=== PATIENT | female | born 1975 | race Two or more races ===

== ENCOUNTER 2020-02-14 10:51 | Outpatient (REF) | payer MEDICAID, SELFPAY ==
--- NOTE | 2020-02-14 10:54 | XR_ITS ---
EXAMINATION: BILATERAL KNEE X-RAY CLINICAL INFORMATION: Right knee pain COMPARISON: Previous knee x-ray October 2011 TECHNIQUE: Standing AP view of both knees and sunrise and lateral views of the right knee FINDINGS: Right knee: Bone alignment is normal. No fracture or dislocation is seen. There are small osteophytes at the patellofemoral and lateral femoral tibial joints. There is no joint effusion. Standing AP view of the left knee is unremarkable. XR/XR knee standing BI IMPRESSION: Right knee: Small osteophytes at the lateral femoral tibial and patellofemoral joints. Unremarkable AP view of the left knee.
--- NOTE | 2020-02-14 10:54 | XR_ITS ---
EXAMINATION: BILATERAL KNEE X-RAY CLINICAL INFORMATION: Right knee pain COMPARISON: Previous knee x-ray October 2011 TECHNIQUE: Standing AP view of both knees and sunrise and lateral views of the right knee FINDINGS: Right knee: Bone alignment is normal. No fracture or dislocation is seen. There are small osteophytes at the patellofemoral and lateral femoral tibial joints. There is no joint effusion. Standing AP view of the left knee is unremarkable. XR/XR knee RT 2V IMPRESSION: Right knee: Small osteophytes at the lateral femoral tibial and patellofemoral joints. Unremarkable AP view of the left knee.
== END 2020-02-14 10:52 | disposition home or self-care (01) ==
LOC: HO.HOSX 10:51
PROVIDERS: PCP Internal Medicine; Referring Provider Internal Medicine; Visit Provider Orthopaedic Surgery
DX: M25.561 Pain in right knee (principal); M25.562 Pain in left knee; G89.29 Other chronic pain
CPT/HCPCS: 73560; 73565; 99202

== ENCOUNTER 2020-04-18 13:48 | Emergency (ER) | payer MEDICAID, SELFPAY ==
--- NOTE | 2020-04-18 | ECG_ITS ---
Test Reason : CP Blood Pressure : / mmHG Vent. Rate : 064 BPM Atrial Rate : 064 BPM P-R Int : 160 ms QRS Dur : 080 ms QT Int : 400 ms P-R-T Axes : 048 062 037 degrees QTc Int : 412 ms Normal sinus rhythm Normal ECG When compared to the previous EKG of No significant changes seen Referred By: Generic ED Physician Electronically Signed By:RANJEET NGUYEN MD
--- NOTE | ~2020-04-18 | XR_ITS ---
EXAMINATION: XR CHEST CLINICAL INFORMATION: Chest pain. COMPARISON: Chest 08/20/2019 TECHNIQUE: Frontal view of the chest was obtained. FINDINGS: The lungs are well-expanded and clear. The heart size and pulmonary vascularity is normal. There is moderate spondylosis of dorsal spine. No lytic process. XR/XR chest 1V IMPRESSION: Unremarkable chest exam.
[2020-04-18 13:57] VITALS: BP 134/64; PULSE 67; RESP 18; TEMP 36.8; O2SAT 99; BMI 38.3
[2020-04-18 15:58] VITALS: BP 112/64; PULSE 62; RESP 16; TEMP 37; O2SAT 100
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
[2020-04-18 16:20] LABS: MANUAL DIFF FLAG NO
[2020-04-18 16:21] LABS: Basophils Percent Auto 0.1 % (0-2); Eosinophils Absolute Auto 0.1 X10*3/uL (0.0-0.4); Eosinophils Percent Auto 1.6 % (0-4); Hematocrit 36.2 % (37-47); Hemoglobin 11.8 g/dl (12.0-16.0); Imm Gran Abs Auto 0.01 X10*3/uL (0.00-0.03); Imm Gran Pct Auto 0.1 % (0.0-0.4); Lymphocytes Absolute Auto 1.3 X10*3/uL (1.2-4.9); Lymphocytes Percent Auto 19.1 % (20-40); Mean Corpuscular HGB Conc 32.6 g/dl (31.0-35.0); Mean Corpuscular Hemoglobin 28.3 pg (27.0-33.0); Mean Corpuscular Volume 86.8 fL (80-98); Mean Platelet Volume 11.4 fL (9.4-12.3); Monocytes Absolute Auto 0.4 X10*3/uL (0.1-1.2); Monocytes Percent Auto 6.2 % (2-11); Neutrophils Absolute Auto 4.9 X10*3/uL (2.0-8.3); Neutrophils Percent Auto 72.9 % (45-73); Platelet Count 198 X10*3/uL (160-400); Red Blood Count 4.17 X10*6/uL (4.20-5.50); Red Cell Distribution Width 14.2 % (11.0-16.0); White Blood Count 6.8 X10*3/uL (4.8-10.8)
[2020-04-18 16:53] LABS: Anion Gap 10 (12-20); Blood Urea Nitrogen 15 mg/dL (9-16); Calcium 8.9 mg/dL (8.4-10.2); Carbon Dioxide 28 mmol/L (22-29); Chloride 106 mmol/L (96-108); Estimated Glomerular Filt Rate > 60; Glucose Random 89 mg/dL (60-115); Potassium 4.2 mmol/L (3.3-5.1); Sodium 140 mmol/L (135-145)
[2020-04-18 16:57] LABS: Troponin-I High Sensitivity < 3.5 ng/L (<3.5-17.0)
[2020-04-18 17:41] VITALS: BP 128/72; PULSE 67; RESP 14; TEMP 37.1; O2SAT 98
--- NOTE | 2020-04-18 18:58 | PC.NURSE ---
This RN at bedside with the interpreter and translator to provide pt with DC instructions. Pt stating that she has no ride home , has no money for a taxi/uber and planned to be admitted. This RN explaining to pt that she is able to use the phone in the waiting room to call family/friends for a ride. This RN offering to call pt a taxi however she continuously stating I have no money to pay for transportation home. Pt damaging this RN find her a ride to the bus stop. Pt ambulating to the waiting room to find transportation home, provided with DC paperwork, IV removed, refusing DC VS.
[2020-04-18 19:02] VITALS: RESP 20
== END 2020-04-18 19:02 | disposition home or self-care (01) ==
PROVIDERS: Emergency Provider Emergency Medicine; PCP Internal Medicine
DX: R51.9 Headache, unspecified (principal)
CPT/HCPCS: 36415; 71045; 80048; 82375; 84484; 85025; 93005; 99283

== ENCOUNTER → 2020-05-30 20:00 | Outpatient (REF) | payer MEDICAID, SELFPAY | LOC: HO.SL 20:00 | PROVIDERS: PCP Internal Medicine; Visit Provider Internal Medicine | DX: R06.81 Apnea, not elsewhere classified (principal) | CPT/HCPCS: 95811 ==

== ENCOUNTER 2020-06-01 11:00 | Outpatient (RCR) | payer MEDICAID, SELFPAY ==
--- NOTE | 2020-05-03 12:21 | MHC.PT.EP ---
[facility] [place] Office [place] Office [place] Office [address] Vanita Spencer [address] [phone] F: [phone] F: [phone] F: [phone] F: [phone] Physical Therapy Plan of Care Date of Evaluation: 05/03/20 Date of Surgery: Diagnosis: Bilateral knee pain Assessment: Pt is a 44 y/o female referred to skilled PT for bilateral knee pain. Assessment reveals impaired right patella mobility, decreased active and passive knee ROM, impaired hip ROM (IR/ER/FLEX/EXT), decreased strength of hips and knees, altered posture, muscle length restrictions, and gait deviations. Related functional limitations include: ascending/descending stairs, squatting, walking for an extended period of time or walking fast, getting in/out of the bus, bathing, sitting for an extended period of time and then trying to transition to stand, standing for greater than a short amount of time, and carrying groceries. The Pt will benefit from skilled PT services 2x/week for 4 weeks in order to reduce impairments, improve limitations, and implement an HEP. Frequency and Duration: The patient will be seen 2x/week for 4 weeks Short Term Goals: -In 2 weeks, Pt to report less than 10/10 knee pain while walking. -In 2 weeks, Pt to improve knee ROM by at least 8 degrees B. Mcc Goals: -In 4 weeks, Pt to demonstrate I w/ HEP. -In 4 weeks, Pt to report at least a 50% improvement in symptoms since onset of PT. Treatment Plan: Modalities to reduce pain, spasms and effusion. Manual therapy to restore motion and function. Therapeutic exercise to improve strength and flexibility. Neuromuscular re-education for posture and balance. Therapeutic activities to return to functional activities of daily living. Electronically signed by: Lynda Cavanaugh PT, DPT Please sign and return to therapist. Thank you for your referral.
--- NOTE | 2020-06-05 10:02 | MHC.PT.DC ---
[facility] [place] Office [place] Office [place] Office [address] Vanita Spencer [address] [phone] F: [phone] F: [phone] F: [phone] F: [phone] Physical Therapy Discharge Report Diagnosis: Bilateral knee pain Date of Surgery: Date of Evaluation: 05/03/20 Date of Discharge: 06/05/20 Treatments to Date: 9 Cancellations to Date: 0 No Shows to Date: 0 Discharge Status: Discharge Summary: Pt has completed a visits of skilled PT for bilateral leg pain. She has consistently reported the same amount of pain and no improved through physical therapy intervention. She will be d/c'd to HEP @ this time w/ recommendation of MD follow-up. She has a rheumatology appointment coming up soon. Electronically signed by: Lynda Cavanaugh PT, DPT Please sign and return to therapist. Thank you for your referral.
== END 2020-06-05 10:01 | disposition other institution (70) ==
LOC: HO.PT 11:00
PROVIDERS: PCP Internal Medicine; Visit Provider Orthopaedic Surgery
DX: M25.561 Pain in right knee (principal); M25.562 Pain in left knee
CPT/HCPCS: 97035; 97110; 97161

== ENCOUNTER → 2020-06-04 09:17 | Outpatient (REF) | payer MEDICAID, SELFPAY ==
--- NOTE | ~2020-06-04 | NM_ITS ---
Exercise Myocardial perfusion study Indication: Chest pain to evaluate for myocardial ischemia Technique: The patient was brought in for an exercise perfusion study on 06/04/2020. Patient performed exercise as per Davey protocol and was injected 30 mCi of sestamibi was given intravenously one target HR was achieved. Images were obtained using the SPECT gamma camera interlaced with the gating device. Images were obtained in supine position. Resting perfusion study was performed on 06/05/2020. Patient was administered 30 mCi of sestamibi intravenously at rest. Images were then obtained in supine position. Images obtained with and without CT attenuation. Total DLP 78 mGy-cm. Images were processed with the software and compared side to side in short axis, horizontal long axis and vertical long axis views. Findings: The stress perfusion study showed non attenuated images show minimally reduced basal anterior wall of the LV myocardium. Remainder of the LV myocardium is normally perfused. Attenuation corrected images show mildly reduced uptake distal septum and apex of the LV myocardium.. The gated study shows normal LV systolic function with calculated LVEF of greater than 70 %. LV cavity is normal in size. The gated study shows normal systolic wall thickening and contraction of all segments. There is no transient ischemic dilation. Resting study shows attenuation corrected images show no change in perfusion pattern compared to stress non attenuated images show normal uptake of radiotracer in all segments. Gating at rest reveals normal systolic wall motion with ejection fraction at 72%. The findings are consistent with no clear reversible defect seen on attenuation corrected images.. NM/NM belkis perf SPECT rest & str Impression: 1. Likely normal myocardial perfusion 2. Gated LVEF is greater than 70% 3. Transient ischemic dilatation not present Stress EKG is negative for ischemia
--- NOTE | 2020-06-04 09:15 | CA_ITS ---
Exercise stress nuclear using Davey protocol. Total of 5mi 1sec. METs 6.80, TAPHR up to 89%. Patient tolerated well, denies any anginal symptoms. EKG with no arrhythmias. No ischemic changes seen during exercise or in recovery. Nuclear images to follow. Normotensive response to exercise. Test reviewed with Dr. Sebastian. DORIAN
== END ==
LOC: HO.CARD 09:17
PROVIDERS: Visit Provider Internal Medicine Cardiovascular Disease
DX: R07.9 Chest pain, unspecified (principal)
CPT/HCPCS: 78452; 93016; 93017; 93018; A9500

== ENCOUNTER 2020-06-27 09:41 | Outpatient (REF) | payer MEDICAID, SELFPAY ==
--- NOTE | ~2020-06-27 | XR_ITS ---
EXAMINATION: XR BOTH KNEES AP STANDING XR RIGHT KNEE, 2 VIEWS CLINICAL INFORMATION: Pain in right knee COMPARISON: 02/14/2020 TECHNIQUE: Standing AP view of both knees and lateral and sunrise views of the right knee. FINDINGS: LEFT KNEE: The bones, joints, and soft tissues are normal on the single AP view. RIGHT KNEE: Minimal osteoarthritis in the right knee is characterized by small marginal osteophytes in the lateral and patellofemoral compartments. This appearance is similar to prior. Joint spaces appear relatively well preserved. No fracture or malalignment. Bone mineralization is normal. No joint effusion. A small enthesopathic spur is present at the quadriceps tendon insertion on the patella. Soft tissues are otherwise unremarkable. XR/XR knee standing BI IMPRESSION: Minimal osteoarthritis in the patellofemoral and lateral compartments in the right knee, unchanged. No new findings.
--- NOTE | ~2020-06-27 | XR_ITS ---
EXAMINATION: XR BOTH KNEES AP STANDING XR RIGHT KNEE, 2 VIEWS CLINICAL INFORMATION: Pain in right knee COMPARISON: 02/14/2020 TECHNIQUE: Standing AP view of both knees and lateral and sunrise views of the right knee. FINDINGS: LEFT KNEE: The bones, joints, and soft tissues are normal on the single AP view. RIGHT KNEE: Minimal osteoarthritis in the right knee is characterized by small marginal osteophytes in the lateral and patellofemoral compartments. This appearance is similar to prior. Joint spaces appear relatively well preserved. No fracture or malalignment. Bone mineralization is normal. No joint effusion. A small enthesopathic spur is present at the quadriceps tendon insertion on the patella. Soft tissues are otherwise unremarkable. XR/XR knee RT 2V IMPRESSION: Minimal osteoarthritis in the patellofemoral and lateral compartments in the right knee, unchanged. No new findings.
--- NOTE | ~2020-06-27 | XR_ITS ---
EXAMINATION: XR HAND, RIGHT XR HAND, LEFT CLINICAL INFORMATION: Pain in unspecified joint. COMPARISON: None TECHNIQUE: PA, lateral, and oblique views of each hand. FINDINGS: RIGHT HAND: Mild osteoarthritis at the long and small finger DIP joints is characterized by nonuniform joint space narrowing and small marginal osteophytes. No fractures are identified. Tiny marginal osteophytes are evident at the 1st CMC joint. MCP joints appear relatively well preserved. No erosions. Bone mineralization is normal. No fracture or malalignment. Soft tissues are unremarkable without appreciable nodularity or mineralization. LEFT HAND: Mild osteoarthritis is evident at the 1st CMC joint with a small chronic ossific fragment and small marginal osteophytes. Additional mild osteoarthritis is evident at the long and small finger DIP joints with small marginal osteophytes primarily. No acute fractures. No erosions or periostitis. Bone mineralization is normal. Soft tissues are unremarkable without significant mineralization. XR/XR hand RT min 3V IMPRESSION: Mild osteoarthritis at a few joints in both hands, notably the 1st CMC joints and the DIP joints of the long and ring fingers.
--- NOTE | ~2020-06-27 | XR_ITS ---
EXAMINATION: XR HAND, RIGHT XR HAND, LEFT CLINICAL INFORMATION: Pain in unspecified joint. COMPARISON: None TECHNIQUE: PA, lateral, and oblique views of each hand. FINDINGS: RIGHT HAND: Mild osteoarthritis at the long and small finger DIP joints is characterized by nonuniform joint space narrowing and small marginal osteophytes. No fractures are identified. Tiny marginal osteophytes are evident at the 1st CMC joint. MCP joints appear relatively well preserved. No erosions. Bone mineralization is normal. No fracture or malalignment. Soft tissues are unremarkable without appreciable nodularity or mineralization. LEFT HAND: Mild osteoarthritis is evident at the 1st CMC joint with a small chronic ossific fragment and small marginal osteophytes. Additional mild osteoarthritis is evident at the long and small finger DIP joints with small marginal osteophytes primarily. No acute fractures. No erosions or periostitis. Bone mineralization is normal. Soft tissues are unremarkable without significant mineralization. XR/XR hand LT min 3V IMPRESSION: Mild osteoarthritis at a few joints in both hands, notably the 1st CMC joints and the DIP joints of the long and ring fingers.
[2020-06-27 10:48] LABS: MANUAL DIFF FLAG NO
[2020-06-27 10:52] LABS: Basophils Percent Auto 0.4 % (0-2); Eosinophils Absolute Auto 0.1 X10*3/uL (0.0-0.4); Eosinophils Percent Auto 2.4 % (0-4); Hemoglobin 12.6 g/dl (12.0-16.0); Imm Gran Abs Auto 0.02 X10*3/uL (0.00-0.03); Imm Gran Pct Auto 0.4 % (0.0-0.4); Lymphocytes Absolute Auto 1.4 X10*3/uL (1.2-4.9); Lymphocytes Percent Auto 29.4 % (20-40); Mean Corpuscular HGB Conc 33.2 g/dl (31.0-35.0); Mean Corpuscular Hemoglobin 29.2 pg (27.0-33.0); Mean Corpuscular Volume 88.2 fL (80-98); Mean Platelet Volume 11.2 fL (9.4-12.3); Monocytes Absolute Auto 0.5 X10*3/uL (0.1-1.2); Monocytes Percent Auto 9.7 % (2-11); Neutrophils Absolute Auto 2.7 X10*3/uL (2.0-8.3); Neutrophils Percent Auto 57.7 % (45-73); Platelet Count 230 X10*3/uL (160-400); Red Blood Count 4.31 X10*6/uL (4.20-5.50); White Blood Count 4.7 X10*3/uL (4.8-10.8)
[2020-06-27 11:23] LABS: Alanine Aminotransferase 12 U/L (0-31); Albumin Level 4.2 g/dL (3.5-5.0); Alkaline Phosphatase 56 U/L (39-117); Anion Gap 12 (12-20); Aspartate Amino Transferase 15 U/L (5-31); Bilirubin Total 0.5 mg/dL (0.0-1.0); Blood Urea Nitrogen 17 mg/dL (9-16); C Reactive Protein 0.44 mg/dL (< or = 0.50); Calcium 9.5 mg/dL (8.4-10.2); Carbon Dioxide 26 mmol/L (22-29); Chloride 105 mmol/L (96-108); Estimated Glomerular Filt Rate > 60; Glucose Random 81 mg/dL (60-115); Potassium 4.4 mmol/L (3.3-5.1); Rheumatoid Factor < 15.0 IU/mL (<15.0); Sodium 139 mmol/L (135-145); Total Protein 7.5 g/dL (6.5-8.0)
[2020-06-27 11:35] LABS: Erythrocyte Sedimentation Rate 28 MM/HR (0-20)
[2020-06-27 11:45] LABS: Thyroid Stimulating Hormone 0.64 uIU/mL (0.32-4.0)
[2020-06-28 14:32] LABS: Anti Nuclear Antibody Screen NEGATIVE (NEGATIVE)
[2020-06-28 15:22] LABS: Cyclic Citrullinated Peptide <16 UNITS
[2020-07-01 14:01] LABS: Vitamin D 25-OH, D2 <4 ng/mL; Vitamin D 25-OH, D3 42 ng/mL; Vitamin D 25-OH, Total 42 ng/mL (30-100)
== END 2020-06-27 09:42 | disposition home or self-care (01) ==
LOC: HO.LAB 09:41
PROVIDERS: PCP Internal Medicine; Visit Provider Student in an Organized Health Care Education/Training Program
DX: M25.561 Pain in right knee (principal); M25.562 Pain in left knee; M25.50 Pain in unspecified joint
CPT/HCPCS: 36415; 73130; 73560; 73565; 80053; 82306; 84443; 85025; 85652; 86038; 86039; 86140; 86200; 86431; 99202

== ENCOUNTER → 2020-07-26 12:32 | Outpatient (BNVA) | payer MEDICAID, SELFPAY | PROVIDERS: Visit Provider Student in an Organized Health Care Education/Training Program | DX: M25.50 Pain in unspecified joint (principal); M79.7 Fibromyalgia; Z79.899 Other long term (current) drug therapy | CPT/HCPCS: 99212 ==

== ENCOUNTER → 2020-07-31 11:11 | Outpatient (BNVA) | payer MEDICAID, SELFPAY | PROVIDERS: PCP Internal Medicine; Referring Provider Internal Medicine; Visit Provider Psychiatry & Neurology Neurology | DX: G47.33 Obstructive sleep apnea (adult) (pediatric) (principal) | CPT/HCPCS: 99202 ==

== ENCOUNTER → 2020-11-06 11:01 | Outpatient (BNVA) | payer MEDICAID, SELFPAY | PROVIDERS: PCP Internal Medicine; Referring Provider Internal Medicine; Visit Provider Psychiatry & Neurology Neurology | DX: Z13.89 Encounter for screening for other disorder (principal) | CPT/HCPCS: 99212 ==

== ENCOUNTER 2020-12-05 15:19 | Emergency (ER) | payer MEDICAID, SELFPAY ==
--- NOTE | ~2020-12-05 | US_ITS ---
EXAMINATION: US VENOUS ULTRASOUND WITH DOPPLER LOWER EXTREMITY, BILATERAL CLINICAL INFORMATION: Bilateral lower extremity edema COMPARISON: Bilateral DVT study 08/20/2019 TECHNIQUE: Ultrasound of the deep veins is performed from the hip to the calf with compression sonography and color and pulse Doppler assessment. Spectral analysis with color-flow imaging is performed. FINDINGS: RIGHT: There is normal venous compression and respiratory variation and augmented flow. The visualized common femoral vein, superficial femoral vein, profunda femoral vein, popliteal vein, and the trifurcation region shows no evidence of deep venous thrombosis. There is no significant popliteal fossa cyst. LEFT: There is normal venous compression and respiratory variation and augmented flow. The visualized common femoral vein, superficial femoral vein, profunda femoral vein, popliteal vein, and the trifurcation region shows no evidence of deep venous thrombosis. There is no significant popliteal fossa cyst. Prominent lymph nodes present in the left groin which have been seen previously. If the patient's symptoms persist, followup ultrasound in 5 days 7 days might be of value to exclude proximal propagation from a non-visualized calf vein. US/US venous duplex LE BI IMPRESSION: No DVT demonstrated in either lower extremity.
[2020-12-05 15:31] VITALS: BP 114/85; PULSE 97; RESP 18; TEMP 36.8; O2SAT 98; BMI 36.3
--- NOTE | 2020-12-05 17:43 | ED_ITS ---
HPI - General Adult General Chief complaint: General Medical Stated complaint: leg swelling Time Seen by Provider: 12/05/20 17:40 Source: patient Limitations: no limitations History of Present Illness HPI narrative: This is a 45-year-old female with a history of bilateral venous insufficiency, who was had swelling off and on her legs for 3-4 years. The patient notes in the last 10 days she has had worse swelling and is also noted some redness to her legs. The patient was seen at [facility] today and was referred to the emergency department for IV antibiotics, per the patient. Patient denies any shortness of breath. She does have chest pain sometimes, denies any chest pain now. She denies being on any diuretic or water pill. She is not on any antibiotics. She denies having any prior history of blood clot. She states she has been admitted to the hospital for this problem in the past. She denies any fever. She does also note she has a history of fibromyalgia and obstructive sleep apnea Related Data Home Medications Medication Instructions Recorded Confirmed finasteride 5 mg tablet 5 mg PO DAILY 01/24/20 06/27/20 lisinopril 10 mg tablet 10 mg PO DAILY 06/27/20 06/27/20 naproxen 500 mg tablet 500 mg PO BID 07/26/20 aripiprazole 5 mg tablet (Abilify) 5 mg PO BEDTIME 11/06/20 furosemide 20 mg tablet 20 mg PO DAILY 11/06/20 Previous Rx's Medication Instructions Recorded cephalexin 750 mg capsule 750 mg PO TID #30 cap 12/05/20 hydrochlorothiazide 25 mg tablet 25 mg PO Q OTHER DAY #40 tab 12/05/20 Allergies Allergy/AdvReac Type Severity Reaction Status Date / Time No Known Allergies Allergy Verified 11/06/20 11:14 [No Known Allergies*] Review of Systems Review of Systems: Yes all other systems are reviewed and are negative Constitutional: Constitutional: Denies fever(s) Eyes: Eyes: Reports as per HPI and Reports no additional eye complaints ENT: Reports system reviewed and no additional complaints, except as documented, Reports as per HPI, Denies nasal congestion, Denies nasal discharge and Denies sore throat Cardiovascular: Cardiovascular: Reports as per HPI, Denies chest pain, Denies dyspnea and Reports other (Swelling to both legs) Respiratory: Respiratory: Reports as per HPI, Denies cough and Denies dyspnea Gastrointestinal: Gastrointestinal: Reports as per HPI, Denies abdominal pain, Denies diarrhea and Denies vomiting Genitourinary: Genitourinary: Reports as per HPI, Denies hematuria, Denies u rinary frequency and Denies dysuria Musculoskeletal: Musculoskeletal: Denies numbness Comments: Pain to both legs Integumentary/Breasts: Skin/Breast: Reports rash (Redness to both legs from about assisted down the calf to the feet) and Reports other (Redness to lower legs) Neurologic: Denies numbness and Denies Sensory deficit (Neuro) Psychiatric: Psychiatric: Reports no additional psychiatric complaints and Reports as per HPI Endocrine: Endocrine: Reports no additional endocrine complaints and Reports as per HPI Hematologic/Lymphatic: Hematologic/Lymphatic: Reports no additional hematologic/lymphatic complaints, Reports as per HPI and Reports other (No peripheral edema) [facility] Past Medical History Medical History Alopecia Arthritis of knee, right Mood disorder Prediabetes Venous insufficiency Vitamin D deficiency Surgical History Previous section Family History Family History Mother HTN (hypertension) Diabetes Social History Social History (Updated 11/06/20 @ 11:16 by JEN Cooper) Household Members: None Housing: House Alcohol intake: never Patient Tobacco Use Status: Never used Tobacco Advance Directives: No Advance Directives Information Provided: No Patient : No Current occupational status: unemployed Current occupation: Right Handed Physical Exam Vital Signs: Vital Signs: Last Vital Signs Temp 97.4 F 12/05/20 20:12 Pulse 67 12/05/20 20:12 Resp 16 12/05/20 20:12 BP 107/53 L 12/05/20 20:12 Pulse Ox 95 12/05/20 20:12 Body Mass Index 36.3 Const: General: cooperative, no acute distress and alert Orientation/consciousness: patient oriented x3 HENMT: Head: Yes normal to inspection Eyes: General: appearance normal, both eyes and all related structures Eyelids: Yes eyelids normal Conjunctivae: conjunctivae normal Pupils: Equal, round and reactive pupils present Neck: Neck: Yes normal visual inspection and Yes supple Chest: Chest palpation & inspection: normal inspection of the chest Resp: Effort & Inspection: normal respiratory effort Auscultation: clear to auscultation bilaterally Cardio: Rate: regular rate Rhythm: regular rhythm Heart sounds: S1 normal heart sound present, S2 normal heart sound present, no gallops, no murmurs and no rubs GI: Palpation (GI): Soft to palpation, nontender and Other GI palpation findings present (Non-distended) Auscultation: normal bowel sounds Skin: General skin exam: erythema (To both lower legs, worse on the left, mildly warm to touch, no weeping or ) Neuro: General: patient oriented x3, no focal motor deficits and CN's II-XI intact bilaterally Cranial nerves: Yes Equal, round and reactive pupils present Cognition (Neuro): normal cognition Motor exam (neuro): 5/5 motor strength present throughout Sensory Exam: No Sensory deficit (Neuro) Extrem: General: Yes normal to inspection and No no pedal edema (Swelling to both legs consistent with chronic lymphedema) Psych: Appearance: grossly normal Affect: normal affect Medical Decision Making MDM Narrative Medical decision making narrative: Patient with chronic lymphedema, has had worsened swelling recently. Patient apparently formally was on furosemide. Patient does have chronic venous stasis changes, which is likely progressed into cellulitis especially on the left leg. Patient is not ill appearing. No fever. White blood cell count normal. Renal function normal. Recommend starting hydrochlorothiazide, making sure to elevate the legs, using compression stockings, and taking Keflex as prescribed for 10 days. Patient was given 1.5 g of Ancef here in the ED. Lab Data Lab results reviewed: Yes I reviewed the patient's lab results. Result diagrams: 12/05/20 18:41 12/05/20 18:41 Labs: Lab Results 12/05/20 12/05/20 Range/Units 18:41 18:41 WBC 6.4 (4.8-10.8) X10*3/uL RBC 3.53 L (4.20-5.50) X10*6/uL Hgb 10.2 L (12.0-16.0) g/dl Hct 31.2 L (37-47) % MCV 88.4 (80-98) fL MCH 28.9 (27.0-33.0) pg MCHC 32.7 (31.0-35.0) g/dl RDW 13.3 (11.0-16.0) % Plt Count 160 D (160-400) X10*3/uL MPV 11.8 (9.4-12.3) fL Immature Gran % (Auto) 0.3 (0.0-0.4) % Neut % (Auto) 71.0 (45-73) % Lymph % (Auto) 15.4 L (20-40) % [place] % (Auto) 11.1 H (2-11) % Eos % (Auto) 1.7 (0-4) % Baso % (Auto) 0.5 (0-2) % Lymph # (Auto) 1.0 L (1.2-4.9) X10*3/uL [place] # (Auto) 0.7 (0.1-1.2) X10*3/uL Eos # (Auto) 0.1 (0.0-0.4) X10*3/uL Baso # (Auto) 0.0 (0.0-0.2) X10*3/uL Abs Immat Gran (auto) 0.02 (0.00-0.03) X10*3/uL Absolute Neuts (auto) 4.6 (2.0-8.3) X10*3/uL Absolute Nucleated RBC 0.000 (0.0-0.012) X10*3/uL Nucleated RBC % (auto) 0.0 (0.0-0.2) /100WBC Sodium 140 (135-145) mmol/L Potassium 4.2 (3.3-5.1) mmol/L Chloride 108 (96-108) mmol/L Carbon Dioxide 25 (22-29) mmol/L Anion Gap 11 L (12-20) BUN 16 (9-16) mg/dL Creatinine 0.81 (0.5-1.4) mg/dL Estim Creat Clear Calc 89.7 Estimated GFR > 60 Random Glucose 102 (60-115) mg/dL Calcium 8.4 D (8.4-10.2) mg/dL Total Bilirubin < 0.2 (0.0-1.0) mg/dL AST 22 D (5-31) U/L ALT 23 (0-31) U/L Alkaline Phosphatase 47 (39-117) U/L Total Protein 6.1 L (6.5-8.0) g/dL Albumin 3.5 (3.5-5.0) g/dL Imaging Data Bilateral lower extremity venous ultrasound: Radiologist's impression: Negative for DVT bilaterally Discharge Plan Discharge Clinical Impression: Chronic acquired lymphedema, Cellulitis Patient Disposition: Home, Self-Care Instructions: Cellulitis (ED), Lymphedema (ED) Additional Instructions: Use compression stockings. Try to keep your legs elevated as often as possible. Start the antibiotics and diuretic as prescribed. Follow up with primary care physician. Return for any worsened symptoms such as increased redness or swelling, fever Prescriptions: New hydrochlorothiazide 25 mg tablet 25 mg PO Q OTHER DAY Qty: 40 RF: 0 cephalexin 750 mg capsule 750 mg PO TID Qty: 30 RF: 0 No Action finasteride 5 mg tablet 5 mg PO DAILY RF: 0 lisinopril 10 mg tablet 10 mg PO DAILY RF: 0 naproxen 500 mg tablet 500 mg PO BID RF: 0 aripiprazole [Abilify] 5 mg tablet 5 mg PO BEDTIME RF: 0 furosemide 20 mg tablet 20 mg PO DAILY RF: 0
[2020-12-05 18:00] VITALS: BP 111/61; PULSE 80; RESP 14; TEMP 36.1; O2SAT 99
[2020-12-05 18:34] VITALS: BP 121/66; PULSE 74; RESP 16; TEMP 36.3; O2SAT 99
[2020-12-05 18:45] LABS: MANUAL DIFF FLAG NO
[2020-12-05 18:49] LABS: Basophils Percent Auto 0.5 % (0-2); Eosinophils Absolute Auto 0.1 X10*3/uL (0.0-0.4); Eosinophils Percent Auto 1.7 % (0-4); Hematocrit 31.2 % (37-47); Hemoglobin 10.2 g/dl (12.0-16.0); Imm Gran Abs Auto 0.02 X10*3/uL (0.00-0.03); Imm Gran Pct Auto 0.3 % (0.0-0.4); Lymphocytes Percent Auto 15.4 % (20-40); Mean Corpuscular HGB Conc 32.7 g/dl (31.0-35.0); Mean Corpuscular Hemoglobin 28.9 pg (27.0-33.0); Mean Corpuscular Volume 88.4 fL (80-98); Mean Platelet Volume 11.8 fL (9.4-12.3); Monocytes Absolute Auto 0.7 X10*3/uL (0.1-1.2); Monocytes Percent Auto 11.1 % (2-11); Neutrophils Absolute Auto 4.6 X10*3/uL (2.0-8.3); Platelet Count 160 X10*3/uL (160-400); Red Blood Count 3.53 X10*6/uL (4.20-5.50); Red Cell Distribution Width 13.3 % (11.0-16.0); White Blood Count 6.4 X10*3/uL (4.8-10.8)
--- NOTE | 2020-12-05 18:52 | PC.NURSE ---
pharmacy aware of Cefazolin 1.5gm not in [facility]is and not previously hung by rn. awaiting for pharmacy to bring antibiotics.
[2020-12-05 19:01] LABS: Alanine Aminotransferase 23 U/L (0-31); Albumin Level 3.5 g/dL (3.5-5.0); Alkaline Phosphatase 47 U/L (39-117); Anion Gap 11 (12-20); Aspartate Amino Transferase 22 U/L (5-31); Bilirubin Total < 0.2 mg/dL (0.0-1.0); Blood Urea Nitrogen 16 mg/dL (9-16); Calcium 8.4 mg/dL (8.4-10.2); Carbon Dioxide 25 mmol/L (22-29); Chloride 108 mmol/L (96-108); Creatinine Clr Calc Pharmacy 89.7; Estimated Glomerular Filt Rate > 60; Glucose Random 102 mg/dL (60-115); Potassium 4.2 mmol/L (3.3-5.1); Sodium 140 mmol/L (135-145); Total Protein 6.1 g/dL (6.5-8.0)
[2020-12-05] MEDS: ceFAZolin Sodium 1.5 GM in 0.9 % Sodium Chloride 100 ML IV (19:25)
[2020-12-05 20:12] VITALS: BP 107/53; PULSE 67; RESP 16; TEMP 36.3; O2SAT 95
== END 2020-12-05 22:18 | disposition home or self-care (01) ==
PROVIDERS: Emergency Provider Emergency Medicine; PCP Internal Medicine
DX: R60.0 Localized edema (principal); I89.0 Lymphedema, not elsewhere classified; L03.116 Cellulitis of left lower limb; L03.115 Cellulitis of right lower limb; Z79.899 Other long term (current) drug therapy
CPT/HCPCS: 36415; 80053; 85025; 93970; 96365; 99283; 99284; J0690

== ENCOUNTER 2021-07-18 13:28 | Outpatient (REF) | payer MEDICAID, SELFPAY ==
--- NOTE | ~2021-07-18 | XR_ITS ---
EXAMINATION: XR FOOT, LEFT CLINICAL INFORMATION: Puncture wound COMPARISON: None TECHNIQUE: AP, lateral, and oblique views of the left foot. FINDINGS: Bone alignment is normal. No fracture or dislocation is seen. Joint spaces are normal. There is a calcaneal spur at the Achilles tendon insertion. XR/XR foot LT min 3V IMPRESSION: No fracture or foreign body. Calcaneal spur.
== END 2021-07-18 13:29 | disposition home or self-care (01) ==
LOC: HO.XRAY 13:28
PROVIDERS: Absent Provider Internal Medicine; PCP Internal Medicine; Visit Provider Nurse Practitioner
DX: S91.332A Puncture wound without foreign body, left foot, initial encounter (principal)
CPT/HCPCS: 73630

== ENCOUNTER 2021-08-08 14:29 | Emergency (ER) | payer MEDICAID, SELFPAY ==
--- NOTE | ~2021-08-08 | US_ITS ---
EXAMINATION: US VENOUS ULTRASOUND WITH DOPPLER LOWER EXTREMITY, BILATERAL CLINICAL INFORMATION: Left swelling for one week with edema COMPARISON: None TECHNIQUE: Ultrasound of the deep veins is performed from the hip to the calf with compression sonography and color and pulse Doppler assessment. Spectral analysis with color-flow imaging is performed. FINDINGS: RIGHT: There is normal venous compression and respiratory variation and augmented flow. The visualized common femoral vein, superficial femoral vein, profunda femoral vein, popliteal vein, and the trifurcation region shows no evidence of deep venous thrombosis. There is no significant popliteal fossa cyst. LEFT: There is normal venous compression and respiratory variation and augmented flow. The visualized common femoral vein, superficial femoral vein, profunda femoral vein, popliteal vein, and the trifurcation region shows no evidence of deep venous thrombosis. There is no significant popliteal fossa cyst. If the patient's symptoms persist, followup ultrasound in 5 days 7 days might be of value to exclude proximal propagation from a non-visualized calf vein. US/US venous duplex LE BI IMPRESSION: No DVT demonstrated in lower extremities bilaterally.
--- NOTE | ~2021-08-08 | XR_ITS ---
EXAMINATION: X-RAY BILATERAL KNEES CLINICAL INFORMATION: Bilateral knee pain and swelling COMPARISON: 06/27/2020 x-ray TECHNIQUE: Right knee 4 views. Left knee 4 views. FINDINGS: Right knee: Small marginal osteophytes in the lateral compartment. No fracture or dislocation seen. Small quadriceps tendon insertional enthesopathy. No significant effusion. Left knee: No fracture or dislocation seen. No effusion. Joint spaces are maintained. Normal alignment. XR/XR knee RT 4V IMPRESSION: Right knee: Mild lateral compartment arthritis. No acute findings. Left knee: No acute findings.
--- NOTE | ~2021-08-08 | XR_ITS ---
EXAMINATION: XR CHEST CLINICAL INFORMATION: Bilateral leg swelling COMPARISON: X-ray 04/18/2020 TECHNIQUE: 2 views of the chest were obtained. FINDINGS: The cardiomediastinal silhouette is within normal limits. The lungs are well expanded. There is no focal consolidation, edema, or effusion. No pneumothorax. No acute osseous abnormality. Thoracic spine degeneration. XR/XR chest 2V IMPRESSION: No acute findings seen.
--- NOTE | ~2021-08-08 | XR_ITS ---
EXAMINATION: X-RAY BILATERAL KNEES CLINICAL INFORMATION: Bilateral knee pain and swelling COMPARISON: 06/27/2020 x-ray TECHNIQUE: Right knee 4 views. Left knee 4 views. FINDINGS: Right knee: Small marginal osteophytes in the lateral compartment. No fracture or dislocation seen. Small quadriceps tendon insertional enthesopathy. No significant effusion. Left knee: No fracture or dislocation seen. No effusion. Joint spaces are maintained. Normal alignment. XR/XR knee LT 4V IMPRESSION: Right knee: Mild lateral compartment arthritis. No acute findings. Left knee: No acute findings.
[2021-08-08 14:32] VITALS: BP 133/78; PULSE 91; RESP 16; TEMP 36.9; O2SAT 97; BMI 40.2
[2021-08-08 14:55] LABS: Hematocrit 40.2 % (37.0-47.0); Hemoglobin 12.9 g/dl (12.0-16.0); Mean Corpuscular HGB Conc 32.1 g/dl (31.0-35.0); Mean Corpuscular Hemoglobin 27.5 pg (27.0-33.0); Mean Corpuscular Volume 85.7 fL (80.0-98.0); Mean Platelet Volume 11.1 fL (9.4-12.3); Platelet Count 203 X10*3/uL (160-400); Red Blood Count 4.69 X10*6/uL (4.20-5.50); Red Cell Distribution Width 13.8 % (11.0-16.0); White Blood Count 7.8 X10*3/uL (4.8-10.8)
[2021-08-08 15:10] LABS: Anion Gap 14 (12-20); Blood Urea Nitrogen 22 mg/dL (9-16); Calcium 9.2 mg/dL (8.4-10.2); Carbon Dioxide 21 mmol/L (22-29); Chloride 107 mmol/L (96-108); Creatinine Clr Calc Pharmacy 91.5; Estimated Glomerular Filt Rate > 60; Glucose Random 121 mg/dL (60-115); Potassium 5.2 mmol/L (3.3-5.1); Sodium 137 mmol/L (135-145)
[2021-08-08 15:16] LABS: B Type Natriuretic Peptide 13 pg/mL (<100); Troponin-I High Sensitivity < 3.5 ng/L (<3.5-17.0)
--- NOTE | 2021-08-08 17:50 | ED_ITS ---
HPI - Extremity Problem General Chief complaint: Extremity Problem <RAJ Coughlin Last Filed: 08/08/21 18:57> Stated complaint: pain in both legs <RAJ Coughlin Last Filed: 08/08/21 18:57> Time Seen by Provider: 08/08/21 17:35 <RAJ Coughlin Last Filed: 08/08/21 18:57> Source: patient <RAJ Coughlin Last Filed: 08/08/21 18:57> Mode of arrival: ambulatory <RAJ Coughlin Last Filed: 08/08/21 18:57> Limitations: language barrier (Maori-speaking) <RAJ Coughlin Last Filed: 08/08/21 18:57> History of Present Illness HPI Narrative: 45-year-old female with a past medical history of hypertension, prediabetes, strep this sleep apnea, fibromyalgia, arthritis, and bilateral venous insufficiency who has had off and on swelling of her legs for the past 3- 4 years presenting to the ED with complaints of worsening swelling over the past week with some redness worse on the right than the left. She reports that she is currently on a water pill Lasix 20 mg that she takes daily as prescribed. She also reports worsening Atraumatic bilateral knee pain is requesting x-rays reports a history of arthritis. She denies any fevers, chills, dizziness, headaches, neck pain /stiffness, trouble swallowing or breathing, cough, sputum production, dyspnea on exertion, orthopnea, palpitations, paresthesias, chest pain, shortness of breath, abdominal pain, back pain, recent travel or sick contacts, recent immobilization or surgery, history of DVT or PE, any estrogen usage or any other symptoms complaints or concerns at this time. <RAJ Coughlin Last Filed: 08/08/21 18:57> MD Complaint: extremity swelling <RAJ Coughlin Last Filed: 08/08/21 18:57> Onset (ago): week(s) (1) <RAJ Coughlin Last Filed: 08/08/21 18:57> Pain Consistency: constant <RAJ Coughlin Last Filed: 08/08/21 18:57> Location: left, right, upper extremity, lower extremity and knee <RAJ Coughlin Last Filed: 08/08/21 18:57> Quality: aching and constant <RAJ Coughlin Last Filed: 08/08/21 18:57> Radiation: none <RAJ Coughlin Last Filed: 08/08/21 18:57> Relieving factors: nothing <RAJ Coughlin Last Filed: 08/08/21 18:57> Exacerbating factors: palpation <RAJ Coughlin Last Filed: 08/08/21 18:57> Associated symptoms: denies other symptoms <RAJ Coughlin Last Filed: 08/08/21 18:57> Context: other ( see above) <RAJ Coughlin Last Filed: 08/08/21 18:57> Related Data Home medications: Home Medications Medication Instructions Recorded Confirmed finasteride 5 mg tablet 5 mg PO DAILY 01/24/20 06/27/20 lisinopril 10 mg tablet 10 mg PO DAILY 06/27/20 06/27/20 naproxen 500 mg tablet 500 mg PO BID 07/26/20 aripiprazole 5 mg tablet (Abilify) 5 mg PO BEDTIME 11/06/20 furosemide 20 mg tablet 20 mg PO DAILY 11/06/20 Previous Rx's Medication Instructions Recorded cephalexin 750 mg capsule 750 mg PO TID #30 cap 12/05/20 hydrochlorothiazide 25 mg tablet 25 mg PO Q OTHER DAY #40 tab 12/05/20 <RAJ Coughlin Last Filed: 08/08/21 18:57> Allergies/Adverse reactions: Allergies Allergy/AdvReac Type Severity Reaction Status Date / Time No Known Allergies Allergy Verified 11/06/20 11:14 [No Known Allergies*] <RAJ Coughlin Last Filed: 08/08/21 18:57> Review of Systems Review of Systems: Constitutional : No Weight loss, No Fever, No Chills, No Night Sweats, No Fatigue, No Malaise ENT/Mouth : No Hearing loss, No Ear Pain, No Nasal Congestion, No Sinus Pain, No Hoarseness, No sore throat, No Rhinorrhea, No Swallowing Difficulty Eyes: No Eye Pain, No Swelling, No Redness, No Foreign Body, No Discharge, No Vision Changes Cardiovascular : + lower extremity edema, No Chest Pain, No SOB, No Dyspnea on Exertion, No Orthopnea, No Palpitations Respiratory : No Cough, No Sputum, No Wheezing, No Smoke Exposure, No Dyspnea Gastrointestinal : No Nausea, No Vomiting, No Diarrhea, No Constipation, No abdominal Pain, No Hematochezia, No Melena Genitourinary : no irregular bleeding, No Dysuria, No Urinary Frequency, No Hematuria, No Urinary Incontinence, No Urgency, No Flank Pain, No Urinary Flow Changes, No Hesitancy Musculoskeletal : + b/l knee joint pain, No Myalgias, No Joint Swelling Skin : No Skin Lesions, No rash Neuro : No Weakness, No Numbness, No Paresthesias, No Loss of Consciousness, No Dizziness, No Headache Psych : No Anxiety/Panic, No Depression, No SI/HI/AH/VH, No Social Issues, Heme/Lymph: No Bruising, No Bleeding,No Lymphadenopathy Endocrine : No Polyuria, No Polydipsia, No Temperature Intolerance <RAJ Coughlin - Last Filed: 08/08/21 18:57> Yes all other systems are reviewed and are negative <RAJ Coughlin - Last Filed: 08/08/21 18:57> PMF Past Medical History Attestation statement: The following information was validated with the patient. <RAJ Coughlin - Last Filed: 08/08/21 18:57> Source: old records reviewed and nursing notes reviewed <RAJ Coughlin - Last Filed: 08/08/21 18:57> Medical History: Medical History Alopecia Arthritis of knee, right Mood disorder Prediabetes Venous insufficiency Vitamin D deficiency <RAJ Coughlin - Last Filed: 08/08/21 18:57> Surgical History: Surgical History Previous section <RAJ Coughlin - Last Filed: 08/08/21 18:57> Family History Family History: Family History Mother HTN (hypertension) Diabetes <RAJ Coughlin Last Filed: 08/08/21 18:57> Social History Social History: Social History Household Members: None Housing: House Alcohol intake: never Patient Tobacco Use Status: Never used Tobacco Advance Directives: No Advance Directives Information Provided: Yes Current occupational status: unemployed Current occupation: Right Handed <RAJ Coughlin - Last Filed: 08/08/21 18:57> Physical Exam Vital Signs: Vital Signs: Last Vital Signs Temp 98.4 F 08/08/21 14:32 Pulse 91 08/08/21 14:32 Resp 16 08/08/21 14:32 BP 133/78 08/08/21 14:32 Pulse Ox 97 08/08/21 14:32 BMI result Body Mass Index 40.2 vital signs have been reviewed as normal and appeared to be correct. Blood pressure normal. Heart rate normal. Respiration rate normal. Temperature normal. Oxygen saturation normal. <RAJ Coughlin - Last Filed: 08/08/21 18:57> Appearance: Alert. Oriented X3. No acute distress. Head: Normal external exam. Normocephalic. Atraumatic. Eyes: PERRLA. EOMI. Conjunctiva and sclera normal. Eyelids normal. ENT: Pharynx normal. Uvula midline. Moist mucous membranes. No lesions/ulcerations or masses noted on the tongue. Normal voice. No trismus noted. No drooling noted. No muffled voice noted. Neck: Normal inspection. Neck supple. FROM. No adenopathy. Thyroid Normal. No tracheal deviation noted. No crepitus is noted. No meningeal signs. No neck mass noted. No signs of trauma noted. CVS: Normal heart rate and rhythm. Heart sound normal. Pulses normal throughout. No murmurs/rales/gallops. Respiratory: No respiratory distress. Painless inspiration. Breath sounds normal. No wheezes/rales/rhonchi noted. Chest nontender. No crepitus is noted. No signs of trauma noted. No accessory muscle usage noted or decreased air movement noted. No signs of trauma. Abdomen: Soft and nontender. Bowel sounds normal in all 4 quadrants. No distention noted. No organomegaly noted. No visible injury noted. Back: Full range of motion noted. Skin: Skin warm and dry. Normal skin color. Normal skin turgor. No rashes/lesions/lacerations noted. Extremities: + 3 pitting lower extremity edema. No calf tenderness is noted. patient reports bilateral knee pain although has full range of motion of bilateral knees not consistent with septic joint no obvious ligamentous or tendon injury noted. Otherwise all other Extremities exhibit normal range of motion and nontender. Neuro: Oriented X 3. No motor deficit. No sensory deficit. Reflexes normal. Normal steady gait. No focal neuro deficits noted. CN's II-XII intact bilaterally? Vascular: + radial pulses/+ 2 distal pedal pulses/+2 dorsalis pedis b/l. Normal cap refill. No cyanosis noted to upper extremity nails and lower extremity toes nails. <RAJ Coughlin - Last Filed: 08/08/21 18:57> Course Course Course Narrative: 17:50pm - 45-year-old female with a past medical history of hypertension, prediabetes, strep this sleep apnea, fibromyalgia, arthritis, and bilateral venous insuff iciency who has had off and on swelling of her legs for the past 3-4 years presenting to the ED with complaints of worsening swelling over the past week with some redness worse on the right than the left. She reports that she is currently on a water pill Lasix 20 mg that she takes daily as prescribed. She also reports worsening Atraumatic bilateral knee pain is requesting x-rays reports a history of arthritis. labs were obtained while the patient was in the waiting room and potassium 5.2. Carbon dioxide 21. BUN 22. Random glucose 121. Otherwise all other labs including troponin and BNP within normal limits /Negative. Plan: will provide 15 g of Kayexalate for the patient's potassium of 5.2. Will obtain a D-dimer. Will obtain a venous duplex ultrasound of bilateral lower ex tremity and a chest x-ray and re-evaluate to evaluate for possible DVT versus PE versus CHF even though her BNP is negative versus pedal edema. <RAJ Coughlin - Last Filed: 08/08/21 18:57> Reevaluation(s) Reevaluation #1: - sign-out to LUPILLO Parker pending PT /INR/D-dimer; chest x-ray; venous duplex ultrasound of bilateral lower extremity; bilateral knee x-ray <RAJ Coughlin - Last Filed: 08/08/21 18:57> Time: 18:45 <RAJ Coughlin - Last Filed: 08/08/21 18:57> MDM - Extremity (Nontraumatic) Medical Records Attestation: I reviewed the patient's medical records. <RAJ Coughlin - Last Filed: 08/08/21 18:57> Lab Data Attestation: I reviewed the patient's lab results. <RAJ Coughlin - Last Filed: 08/08/21 18:57> Result diagrams: : 08/08/21 14:48 08/08/21 14:48 <RAJ Coughlin - Last Filed: 08/08/21 18:57> Labs: Lab Results 08/08/21 08/08/21 08/08/21 Range/Units 14:48 14:48 14:48 WBC 7.8 (4.8-10.8) X10*3/uL RBC 4.69 (4.20-5.50) X10*6/uL Hgb 12.9 (12.0-16.0) g/dl Hct 40.2 (37.0-47.0) % MCV 85.7 (80.0-98.0) fL MCH 27.5 (27.0-33.0) pg MCHC 32.1 (31.0-35.0) g/dl RDW 13.8 (11.0-16.0) % Plt Count 203 (160-400) X10*3/uL MPV 11.1 (9.4-12.3) fL Absolute Nucleated RBC 0.000 (0.0-0.012) X10*3/uL Nucleated RBC % (auto) 0.0 (0.0-0.2) /100WBC Sodium 137 (135-145) mmol/L Potassium 5.2 H D (3.3-5.1) mmol/L Chloride 107 (96-108) mmol/L Carbon Dioxide 21 L (22-29) mmol/L Anion Gap 14 (12-20) BUN 22 H (9-16) mg/dL Creatinine 0.84 (0.5-1.4) mg/dL Estim Creat Clear Calc 91.5 Estimated GFR > 60 Random Glucose 121 H (60-115) mg/dL Calcium 9.2 D (8.4-10.2) mg/dL Total Bilirubin < 0.2 (0.0-1.0) mg/dL Direct Bilirubin < 0.2 (0.0-0.5) mg/dL AST 26 (5-31) U/L ALT 22 (0-31) U/L Alkaline Phosphatase 60 D (39-117) U/L Troponin I High Sens < 3.5 (<3.5-17.0) ng/L B-Natriuretic Peptide 13 (<100) pg/mL Total Protein 7.7 D (6.5-8.0) g/dL Albumin 3.9 (3.5-5.0) g/dL <RAJ Coughlin - Last Filed: 08/08/21 18:57> Critical Care Time Critical Care Time Critical Care Time: Yes <RAJ Coughlin - Last Filed: 08/08/21 18:57> Total Critical Care Time: 60 <RAJ Coughlin - Last Filed: 08/08/21 18:57> Attestation: I personally attest to this time spent taking care of the patient <RAJ Coughlin - Last Filed: 08/08/21 18:57> Discharge Plan Discharge Clinical Impression: Leg swelling, Acute hyperkalemia <RAJ Coughlin - Last Filed: 08/08/21 18:57> Patient Disposition: Still a Patient <RAJ Coughlin - Last Filed: 08/08/21 18:57> Prescriptions: No Action hydrochlorothiazide 25 mg tablet 25 mg PO Q OTHER DAY Qty: 40 0RF Rx Instructions: Take daily for 1 week, then every other day cephalexin 750 mg capsule 750 mg PO TID Qty: 30 0RF finasteride 5 mg tablet 5 mg PO DAILY 0RF lisinopril 10 mg tablet 10 mg PO DAILY 0RF naproxen 500 mg tablet 500 mg PO BID 0RF aripiprazole [Abilify] 5 mg tablet 5 mg PO BEDTIME 0RF furosemide 20 mg tablet 20 mg PO DAILY 0RF <RAJ Coughlin - Last Filed: 08/08/21 18:57>
[2021-08-08 18:23] LABS: Alanine Aminotransferase 22 U/L (0-31); Albumin Level 3.9 g/dL (3.5-5.0); Alkaline Phosphatase 60 U/L (39-117); Aspartate Amino Transferase 26 U/L (5-31); Bilirubin Direct < 0.2 mg/dL (0.0-0.5); Bilirubin Total < 0.2 mg/dL (0.0-1.0); Total Protein 7.7 g/dL (6.5-8.0)
[2021-08-08 19:06] LABS: INTERNATIONAL NORM RATIO 0.9 (0.9-1.1); Prothrombin Time 10.5 SEC (9.9-13.0)
[2021-08-08 19:08] LABS: D Dimer High Sensitivity 294 NG/ML
[2021-08-08] MEDS: Sodium Polystyrene Sulfon/Sorb 15 GM/60 ML ORAL.SUSP PO (19:36)
--- NOTE | 2021-08-08 20:59 | ED.EXTPRO ---
HPI - Extremity Problem General Chief complaint: Extremity Problem Stated complaint: pain in both legs Time Seen by Provider: 08/08/21 17:35 Source: patient Mode of arrival: ambulatory Limitations: language barrier (Peruvian-speaking) History of Present Illness Pain Consistency: constant Location: left, right, upper extremity, lower extremity and knee Quality: aching and constant Relieving factors: nothing Exacerbating factors: palpation Associated symptoms: denies other symptoms Related Data Home Medications Medication Instructions Recorded Confirmed finasteride 5 mg tablet 5 mg PO DAILY 01/24/20 06/27/20 lisinopril 10 mg tablet 10 mg PO DAILY 06/27/20 06/27/20 naproxen 500 mg tablet 500 mg PO BID 07/26/20 aripiprazole 5 mg tablet (Abilify) 5 mg PO BEDTIME 11/06/20 furosemide 20 mg tablet 20 mg PO DAILY 11/06/20 Previous Rx's Medication Instructions Recorded cephalexin 750 mg capsule 750 mg PO TID #30 caps 12/05/20 hydrochlorothiazide 25 mg tablet 25 mg PO Q OTHER DAY #40 tabs 12/05/20 Allergies Allergy/AdvReac Type Severity Reaction Status Date / Time No Known Allergies Allergy Verified 11/06/20 11:14 [No Known Allergies*] [facility] Past Medical History Medical History Alopecia Arthritis of knee, right Mood disorder Prediabetes Venous insufficiency Vitamin D deficiency Surgical History Previous section Family History Family History Mother HTN (hypertension) Diabetes Social History Social History Household Members: None Housing: House Alcohol intake: never Patient Tobacco Use Status: Never used Tobacco Advance Directives: No Advance Directives Information Provided: Yes Current occupational status: unemployed Current occupation: Right Handed Physical Exam Vital Signs: Vital Signs: Last Vital Signs Temp 98.4 F 08/08/21 14:32 Pulse 66 08/09/21 00:23 Resp 14 08/09/21 00:23 BP 118/62 08/09/21 00:23 Pulse Ox 99 08/09/21 00:23 O2 Del Method 08/09/21 00:23 BMI result Body Mass Index 40.2 MDM - Extremity (Nontraumatic) Lab Data Result diagrams: 08/08/21 14:48 08/08/21 14:48 Labs: Lab Results 08/08/21 08/08/21 08/08/21 Range/Units 14:48 14:48 14:48 WBC 7.8 (4.8-10.8) X10*3/uL RBC 4.69 (4.20-5.50) X10*6/uL Hgb 12.9 (12.0-16.0) g/dl Hct 40.2 (37.0-47.0) % MCV 85.7 (80.0-98.0) fL MCH 27.5 (27.0-33.0) pg MCHC 32.1 (31.0-35.0) g/dl RDW 13.8 (11.0-16.0) % Plt Count 203 (160-400) X10*3/uL MPV 11.1 (9.4-12.3) fL Absolute Nucleated RBC 0.000 (0.0-0.012) X10*3/uL Nucleated RBC % (auto) 0.0 (0.0-0.2) /100WBC PT (9.9-13.0) SEC INR (0.9-1.1) D-Dimer High Sensitivty NG/ML Sodium 137 (135-145) mmol/L Potassium 5.2 H D (3.3-5.1) mmol/L Chloride 107 (96-108) mmol/L Carbon Dioxide 21 L (22-29) mmol/L Anion Gap 14 (12-20) BUN 22 H (9-16) mg/dL Creatinine 0.84 (0.5-1.4) mg/dL Estim Creat Clear Calc 91.5 Estimated GFR > 60 Random Glucose 121 H (60-115) mg/dL Calcium 9.2 D (8.4-10.2) mg/dL Total Bilirubin < 0.2 (0.0-1.0) mg/dL Direct Bilirubin < 0.2 (0.0-0.5) mg/dL AST 26 (5-31) U/L ALT 22 (0-31) U/L Alkaline Phosphatase 60 D (39-117) U/L Troponin I High Sens < 3.5 (<3.5-17.0) ng/L B-Natriuretic Peptide 13 (<100) pg/mL Total Protein 7.7 D (6.5-8.0) g/dL Albumin 3.9 (3.5-5.0) g/dL 08/08/21 08/08/21 Range/Units 18:52 18:52 WBC (4.8-10.8) X10*3/uL RBC (4.20-5.50) X10*6/uL Hgb (12.0-16.0) g/dl Hct (37.0-47.0) % MCV (80.0-98.0) fL MCH (27.0-33.0) pg MCHC (31.0-35.0) g/dl RDW (11.0-16.0) % Plt Count (160-400) X10*3/uL MPV (9.4-12.3) fL Absolute Nucleated RBC (0.0-0.012) X10*3/uL Nucleated RBC % (auto) (0.0-0.2) /100WBC PT 10.5 (9.9-13.0) SEC INR 0.9 (0.9-1.1) D-Dimer High Sensitivty 294 NG/ML Sodium (135-145) mmol/L Potassium (3.3-5.1) mmol/L Chloride (96-108) mmol/L Carbon Dioxide (22-29) mmol/L Anion Gap (12-20) BUN (9-16) mg/dL Creatinine (0.5-1.4) mg/dL Estim Creat Clear Calc Estimated GFR Random Glucose (60-115) mg/dL Calcium (8.4-10.2) mg/dL Total Bilirubin (0.0-1.0) mg/dL Direct Bilirubin (0.0-0.5) mg/dL AST (5-31) U/L ALT (0-31) U/L Alkaline Phosphatase (39-117) U/L Troponin I High Sens (<3.5-17.0) ng/L B-Natriuretic Peptide (<100) pg/mL Total Protein (6.5-8.0) g/dL Albumin (3.5-5.0) g/dL Discharge Plan Discharge Clinical Impression: Leg swelling, Acute hyperkalemia, Edema, Arthritis Patient Disposition: Home, Self-Care Instructions: Hyperkalemia (ED), Swollen Knee Joint (ED) Additional Instructions: Take your medications as prescribed. If you were prescribed antibiotics today, it is important that you take your medication to their entirety, do not skip any doses, do not finish them early. Follow-up with your primary care provider this week. Follow-up with Cardiology. Return to the emergency department with new or worsening symptoms. Such as fevers, chills, chest pain, shortness of breath, nausea, vomiting, dizziness, headache, vision changes, lethargy, unilateral leg swelling, worsening swelling, pain, shortness of breath, weakness. In case of emergency call 911 Your potassium is noted to be slightly elevated you were given a medication to bring down the potassium level, please have your lab we checked in 2-3 days. US/US venous duplex LE BI IMPRESSION: No DVT demonstrated in? lower extremities bilaterally. XR/XR chest 2V IMPRESSION: No acute findings seen. XR/XR knee RT 4V IMPRESSION: Right knee: Mild lateral compartment arthritis. No acute findings. ? Left knee: No acute findings.? Prescriptions: No Action hydrochlorothiazide 25 mg tablet 25 mg PO Q OTHER DAY Qty: 40 0RF Rx Instructions: Take daily for 1 week, then every other day cephalexin 750 mg capsule 750 mg PO TID Qty: 30 0RF finasteride 5 mg tablet 5 mg PO DAILY lisinopril 10 mg tablet 10 mg PO DAILY naproxen 500 mg tablet 500 mg PO BID aripiprazole [Abilify] 5 mg tablet 5 mg PO BEDTIME furosemide 20 mg tablet 20 mg PO DAILY Referrals: Amanda Olivas MD [Primary Care Provider] - 1 day Gabriel Sebastian MD [Physician] - 1 week Interventions: ED Discharge Assessment Last Done: 08/09/21 00:52 Discharge Date/Time: 08/09/21 00:52
[2021-08-08] MEDS: Ketorolac Tromethamine 15 MG/ML VIAL 30 MG IM (23:14)
[2021-08-09 00:23] VITALS: BP 118/62; PULSE 66; RESP 14; O2SAT 99
== END 2021-08-09 00:52 | disposition home or self-care (01) ==
PROVIDERS: Physician Assistant Medical; Emergency Provider Emergency Medicine; PCP Internal Medicine
DX: M79.89 Other specified soft tissue disorders (principal); E87.5 Hyperkalemia; M79.604 Pain in right leg; M79.605 Pain in left leg; M17.11 Unilateral primary osteoarthritis, right knee; I10 Essential (primary) hypertension; Z59.02 Unsheltered homelessness
CPT/HCPCS: 36415; 71046; 73564; 80048; 80076; 83880; 84484; 85027; 85379; 85610; 93970; 96372; 99284; J1885

== ENCOUNTER 2022-03-10 12:44 | Emergency (ER) | payer MEDICAID, SELFPAY ==
--- NOTE | ~2022-03-10 | XR_ITS ---
EXAMINATION: XR chest 2V CLINICAL INFORMATION: Reason for Exam Cough congestion x2 days COMPARISON: Prior chest x-ray 08/08/2021 TECHNIQUE: XR chest 2V Lungs and [place]: Both lungs are clear. Pleura: Normal. Costophrenic angles are sharp. No pneumothorax. Heart: The heart is normal in size. Mediastinum: The mediastinum is within normal limits.. Bones: Skeletal structures included are normal for patient's age. XR/XR chest 2V IMPRESSION: No radiographic evidence of acute cardiopulmonary disease.
--- NOTE | 2022-03-10 14:20 | ED.GENADULT ---
HPI - General Adult General Chief complaint: Upper Respiratory Symptoms <RAJ Coughlin - Last Filed: 03/10/22 14:23> Stated complaint: body pain all over <RAJ Coughlin - Last Filed: 03/10/22 14:23> Time Seen by Provider: 03/10/22 16:20 <RAJ Coughlin - Last Filed: 03/10/22 14:23> Source: patient and circular distributor <Neena Leal NP - Last Filed: 03/10/22 18:03> Mode of arrival: ambulatory <Neena Leal NP - Last Filed: 03/10/22 18:03> Limitations: language barrier <Neena Leal NP - Last Filed: 03/10/22 18:03> History of Present Illness HPI narrative: 46-year-old female with a history of hypertension, fibromyalgia presents with complaints of cough, body aches and headache, bilateral ear pain, diarrhea since yesterday. No fevers, chills, chest pain, difficulty breathing, vomiting, abdominal pain. <Neena Leal NP - Last Filed: 03/10/22 18:03> Related Data Home medications: Home Medications Medication Instructions Recorded Confirmed finasteride 5 mg tablet 5 mg PO DAILY 01/24/20 06/27/20 lisinopril 10 mg tablet 10 mg PO DAILY 06/27/20 06/27/20 naproxen 500 mg tablet 500 mg PO BID 07/26/20 aripiprazole 5 mg tablet (Abilify) 5 mg PO BEDTIME 11/06/20 furosemide 20 mg tablet 20 mg PO DAILY 11/06/20 Previous Rx's Medication Instructions Recorded cephalexin 750 mg capsule 750 mg PO TID #30 caps 12/05/20 hydrochlorothiazide 25 mg tablet 25 mg PO Q OTHER DAY #40 tabs 12/05/20 acetaminophen 325 mg tablet 650 mg PO Q4H PRN fever or pain 03/10/22 (Tylenol) #30 tabs ibuprofen 600 mg tablet 600 mg PO Q6H PRN pain #30 tabs 03/10/22 <RAJ Coughlin - Last Filed: 03/10/22 14:23> Allergies/adverse reactions: Allergies Allergy/AdvReac Type Severity Reaction Status Date / Time No Known Allergies Allergy Verified 10/18/21 14:16 [No Known Allergies*] <RAJ Coughlin - Last Filed: 03/10/22 14:23> Review of Systems Review of Systems: Yes all other systems are reviewed and are negative <Neena Leal NP - Last Filed: 03/10/22 18:03> Constitutional: Constitutional: Reports no additional constitutional complaints, Reports body ache(s), Denies chills, Denies fever(s), Reports headache(s) and Denies weakness <Neena Leal NP - Last Filed: 03/10/22 18:03> Eyes: Eyes: Reports no additional eye complaints and Denies change in vision <Neena Leal NP - Last Filed: 03/10/22 18:03> ENT: Reports system reviewed and no additional complaints, except as documented, Denies dizziness, Reports otalgia, Reports headache(s), Denies nasal congestion, Denies nasal discharge and Denies neck pain <Neena Leal NP - Last Filed: 03/10/22 18:03> Cardiovascular: Cardiovascular: Reports no additional cardiovascular complaints, Denies chest pain, Denies leg edema and Denies dyspnea <Neena Leal NP - Last Filed: 03/10/22 18:03> Respiratory: Respiratory: Reports no additional respiratory complaints, Reports cough and Denies dyspnea <Neena Leal NP - Last Filed: 03/10/22 18:03> Gastrointestinal: Gastrointestinal: Reports no additional gastrointestinal complaints, Denies abdominal pain, Reports diarrhea, Denies nausea and Denies vomiting <Neena Leal NP - Last Filed: 03/10/22 18:03> Genitourinary: Genitourinary: Reports no additional female genitourinary complaints and Denies urinary incontinence <Neena Leal NP - Last Filed: 03/10/22 18:03> Musculoskeletal: Musculoskeletal: Reports no additional musculoskeletal complaints, Denies back pain, Denies arthralgias, Denies joint swelling, Denies neck pain, Denies numbness and Denies tingling <Neena Leal NP - Last Filed: 01/02/23 18:03> Integumentary/Breasts: Skin/Breast: Reports system reviewed and no additional complaints, except as docu and Denies rash <Neena Leal NP - Last Filed: 03/10/22 18:03> Neurologic: Reports system reviewed and no additional complaints, except as documented, Denies dizziness, Reports headache(s), Denies numbness, Denies tingling and Denies weakness <Neena Leal NP - Last Filed: 03/10/22 18:03> [facility] Past Medical History Attestation statement: The following information was validated with the patient. <Neena Leal NP - Last Filed: 03/10/22 18:03> Source: old records reviewed and nursing notes reviewed <Neena Leal NP - Last Filed: 03/10/22 18:03> Medical History: Medical History Alopecia Arthritis of knee, right Mood disorder Prediabetes Venous insufficiency Vitamin D deficiency <RAJ Coughlin - Last Filed: 03/10/22 14:23> Surgical History: Surgical History Previous section <RAJ Coughlin - Last Filed: 03/10/22 14:23> Family History Family History: Family History Mother HTN (hypertension) Diabetes <RAJ Coughlin - Last Filed: 03/10/22 14:23> Social History Social History: Social History Household Members: None Housing: House Alcohol intake: never Patient Tobacco Use Status: Never used Tobacco Advance Directives: No Advance Directives Information Provided: Yes Current occupational status: unemployed Current occupation: Right Handed <RAJ Coughlin - Last Filed: 03/10/22 14:23> Physical Exam ED Vital Signs: Vital Signs - 24 hr 03/10/22 14:21 Temperature 97.9 F Pulse Rate 84 Respiratory Rate 16 Blood Pressure 151/86 H Pulse Oximetry 98 Oxygen Delivery Method Room Air BMI result Body Mass Index 40.2 <RAJ Coughlin - Last Filed: 03/10/22 14:23> Vital Signs - 24 hr 03/10/22 14:21 Temperature 97.9 F Pulse Rate 84 Respiratory Rate 16 Blood Pressure 151/86 H Pulse Oximetry 98 Oxygen Delivery Method Room Air BMI result Body Mass Index 40.2 <Neena Leal NP - Last Filed: 03/10/22 18:03> Const General: cooperative, healthy appearing, comfortable and no acute distress <Neena Leal NP - Last Filed: 03/10/22 18:03> Orientation/consciousness: patient oriented x3 <Neena Leal NP - Last Filed: 03/10/22 18:03> Limitations: no limitations <Neena Leal NP - Last Filed: 03/10/22 18:03> HENMT Head: Yes normal to inspection <Neena Leal NP - Last Filed: 03/10/22 18:03> Ears: hearing grossly normal bilaterally and TM's normal bilaterally <Neena Leal NP - Last Filed: 03/10/22 18:03> General nose exam: Normal external nose present <Neena Leal NP - Last Filed: 03/10/22 18:03> Face and sinus: Yes normal facial exam <Neena Leal NP - Last Filed: 03/10/22 18:03> Throat: Yes posterior oropharynx normal, Yes tonsils normal and Yes uvula midline <Neena Leal NP - Last Filed: 03/10/22 18:03> Eyes General: appearance normal, both eyes and all related structures <Neena Leal NP - Last Filed: 03/10/22 18:03> Pupils: Equal, round and reactive pupils present <Neena Leal NP - Last Filed: 03/10/22 18:03> Neck Neck: Yes normal visual inspection, Yes full ROM, Yes no lymphadenopathy and Yes no meningeal signs <Neena Leal NP - Last Filed: 03/10/22 18:03> Chest Chest palpation & inspection: normal inspection of the chest <Neena Leal NP - Last Filed: 03/10/22 18:03> Resp Effort & Inspection: normal respiratory effort <Neena Leal NP - Last Filed: 03/10/22 18:03> Auscultation: clear to auscultation bilaterally <Neena Leal NP - Last Filed: 03/10/22 18:03> Cardio Rate: regular rate <Neena Leal CHUMMER - Last Filed: 03/10/22 18:03> Rhythm: regular rhythm <Neena Leal CHUMMER - Last Filed: 03/10/22 18:03> Peripheral pulses: Peripheral pulses 2+ throughout <Neena Leal NP - Last Filed: 03/10/22 18:03> GI Inspection: Yes normal to inspection <Neena Leal NP - Last Filed: 03/10/22 18:03> Palpation (GI): Soft to palpation and nontender <Neena Leal CHUMMER - Last Filed: 03/10/22 18:03> General: Yes no CVA tenderness <Neena Leal NP - Last Filed: 03/10/22 18:03> Back/Spine/Pelvis Back: no CVA tenderness <Neena Leal NP - Last Filed: 03/10/22 18:03> Thoracic/Lumbar Spine: thoracic and lumbar spine normal to inspection <Neena Leal CHUMMER - Last Filed: 03/10/22 18:03> Skin General skin exam: no rashes or lesions noted <Neena Leal NP - Last Filed: 03/10/22 18:03> Neuro General: patient oriented x3, moves all extremities and no meningeal signs <Neena Leal NP - Last Filed: 03/10/22 18:03> Cranial nerves: Yes Equal, round and reactive pupils present <Neena Leal NP - Last Filed: 03/10/22 18:03> Cognition (Neuro): normal cognition <Neena Leal NP - Last Filed: 03/10/22 18:03> Gait exam (Neuro): Normal gait present <Neena Leal NP - Last Filed: 03/10/22 18:03> Extrem General: Yes normal to inspection, Yes no pedal edema and Yes no calf tenderness <Neena eLal NP - Last Filed: 03/10/22 18:03> Course Course Course Narrative: JORY-14:20PM - 46yoF presenting to the ER with URI complaints which include generalized fatigue/malaise, headaches, nasal congestion/rhinorrhea, productive cough with body aches/back pain since yesterday worse today. Denies recent travel or sick contacts or any other symptoms complaints or concerns at this time. Plan: COVID/RSV/flu swab ordered at this time along with a chest x-ray. Patient is stable to go back to the waiting room to be evaluated in [facility]. <RAJ Coughlin - Last Filed: 03/10/22 14:23> Reevaluation(s) Reevaluation #1: Testing for flu, COVID, RSV are negative. Chest x-ray shows no signs of pneumonia. Likely viral syndrome. Patient requesting pain medication. Patient reports improvement with Toradol in the past when she has been here for similar symptoms. Toradol given. Will discharge patient home with Motrin and Tylenol to alternate for pain or fever. Reviewed worrisome signs and symptoms of when to return to the emergency room. Comfortable plan for discharge home. <Neena Leal NP - Last Filed: 03/10/22 18:03> Medications Administered Discontinued Medications Generic Name Dose Route Start Last Admin Trade Name Freq PRN Reason Stop Dose Admin Ketorolac Tromethamine 30 mg 03/10/22 17:12 03/10/22 17:20 Ketorolac Tromethamine 30 Mg/Ml Vial IM 03/10/22 17:13 30 mg ONCE ONE Administration <RAJ Coughlin - Last Filed: 03/10/22 14:23> Medications Administered Discontinued Medications Generic Name Dose Route Start Last Admin Trade Name Freq PRN Reason Stop Dose Admin Ketorolac Tromethamine 30 mg 03/10/22 17:12 03/10/22 17:20 Ketorolac Tromethamine 30 Mg/Ml Vial IM 03/10/22 17:13 30 mg ONCE ONE Administration <Neena Leal NP - Last Filed: 03/10/22 18:03> Medical Decision Making Medical Decision Making [facility] Narrative: 46-year-old female with history of fibromyalgia, osteoarthritis here with 24 hours of body aches, headache, diarrhea, bilateral ear pain. Vitals stable. Lungs clear throughout. Abdomen soft nontender. Will send testing for flu, COVID, RSV. <Neena Leal NP - Last Filed: 03/10/22 18:03> Differential Diagnosis Differential Diagnoses: The differential diagnosis associated with the presentation includes <Neena Leal NP - Last Filed: 03/10/22 18:03> Influenza, viral syndrome <Neena Lela NP - Last Filed: 03/10/22 18:03> Lab Data [facility] Lab Attestation statement: I reviewed the patient's lab results. <Neena Leal NP - Last Filed: 03/10/22 18:03> Labs: Lab Results 03/10/22 Range/Units 14:26 Influenza Type A (PCR) NEGATIVE (Negative) Influenza Type B (PCR) NEGATIVE (Negative) RSV RNA Qual (PCR) NEGATIVE (Negative) SARS-CoV-2 RNA (RT-PCR) NEGATIVE (Negative) <RAJ Coughlin - Last Filed: 03/10/22 14:23> Lab Results 03/10/22 Range/Units 14:26 Influenza Type A (PCR) NEGATIVE (Negative) Influenza Type B (PCR) NEGATIVE (Negative) RSV RNA Qual (PCR) NEGATIVE (Negative) SARS-CoV-2 RNA (RT-PCR) NEGATIVE (Negative) <Neena Leal NP - Last Filed: 03/10/22 18:03> Independent Interpretation I performed an independent interpretation of an: Plain X-Ray (I independently reviewed the x-ray that shows no acute pneumonia) <Neena Leal NP - Last Filed: 03/10/22 18:03> Radiology Impression Discussion of test interpretation with radiology: I have reviewed the radiologist's reading. <Neena Leal NP - Last Filed: 03/10/22 18:03> Radiologist Impression: ior chest x-ray 08/08/2021? TECHNIQUE: XR chest 2V Lungs and [place]: Both lungs are clear. Pleura: Normal. Costophrenic angles are sharp. No pneumothorax. Heart: The heart is normal in size. Mediastinum: The mediastinum is within normal limits.. Bones: Skeletal structures included are normal for patient's age. XR/XR chest 2V IMPRESSION: No radiographic evidence of acute cardiopulmonary disease. <Neena Leal NP - Last Filed: 03/10/22 18:03> Discharge Plan Discharge Clinical Impression: Viral infection <RAJ Coughlin - Last Filed: 03/10/22 14:23> Patient Disposition: Home, Self-Care <RAJ Coughlin - Last Filed: 03/10/22 14:23> Instructions: Viral Syndrome (ED) <RAJ Coughlin - Last Filed: 03/10/22 14:23> Additional Instructions: Las pruebas de COVID, gripe y RSV son negativas. Radiograf?a de t?rax negativa. Aumentar l?quidos, descansar Motrin alternativo, Tylenol para el dolor o la fiebre <RAJ Coughlin - Last Filed: 03/10/22 14:23> Prescriptions: New ibuprofen 600 mg tablet 600 mg PO Q6H PRN (Reason: pain) Qty: 30 0RF acetaminophen [Tylenol] 325 mg tablet 650 mg PO Q4H PRN (Reason: fever or pain) Qty: 30 0RF No Action hydrochlorothiazide 25 mg tablet 25 mg PO Q OTHER DAY Qty: 40 0RF Rx Instructions: Take daily for 1 week, then every other day cephalexin 750 mg capsule 750 mg PO TID Qty: 30 0RF finasteride 5 mg tablet 5 mg PO DAILY lisinopril 10 mg tablet 10 mg PO DAILY naproxen 500 mg tablet 500 mg PO BID aripiprazole [Abilify] 5 mg tablet 5 mg PO BEDTIME furosemide 20 mg tablet 20 mg PO DAILY <RAJ Coughlin - Last Filed: 03/10/22 14:23> Referrals: Amanda Olivas MD [Primary Care Provider] - 1 week <RAJ Coughlin - Last Filed: 03/10/22 14:23> Interventions: ED Discharge Assessment Last Done: 03/10/22 17:26 <RAJ Coughlin - Last Filed: 03/10/22 14:23> Discharge Date/Time: 03/10/22 17:26 <RAJ Coughlin - Last Filed: 03/10/22 14:23> Print Language: Greek <RAJ Coughlin - Last Filed: 03/10/22 14:23>
[2022-03-10 14:21] VITALS: BP 151/86; PULSE 84; RESP 16; TEMP 36.6; O2SAT 98; BMI 40.2
--- OUTSIDE RECORDS SUMMARY | 2022-03-10 14:29 | XMS_ITS | Continuity of Care Document ---
:1975 Author Organization [facility] Address [address] [place] [address]- Care Team Providers Name Role Phone Not on Staff, PCP Primary Care Physician Unavailable [place] [facility] [place] 11/20/20 - 11/27/20 [facility] [address] [place] [address]- Attending Physician: Ciara Collins MD Referring Physician: Not on Staff, Referring MD Allergies, Adverse Reactions, Alerts Substance Reaction Severity Status NKA Active Immunizations Given and Recorded Vaccine Date Status Refusal Reason SARS-CoV-2 (COVID-19) Ad26 vaccine1 06/16/20 Recorded 1Result Comment: Information given by patient Medications Abilify 5 mg oral tablet 5 mg, 1, tablet, By Mouth, Daily, # 30 tablet, Refills 0, Tot. Refills 0, Maintenance, 08/17/20 9:16:00 EDT, Route to Pharmacy Electronically, [facility], Partial fill upon patient request if the prescription is for a schedule II o... Start Date: 08/17/20 Status: Orderedlisinopril 10 mg oral tablet 10 mg, 1, tablet, By Mouth, Daily, Refills 0, Maintenance, 08/17/20 10:01:00 EDT, Partial fill upon patient request if the prescription is for a schedule II opioid drug. Start Date: 08/17/20 Status: Ordered Vital Signs Most recent to oldest [Reference Range]: 1 Height 158 cm (11/20/20 2:45 PM) Oxygen Saturation [94-100 %] 100 % (11/20/20 2:45 PM) Pulse Rate [55-90 bpm] 77 bpm (11/20/20 2:45 PM) Blood Pressure [90-138/55-84 mm Hg] 126/71 mm Hg (11/20/20 2:45 PM) Respiratory Rate [16-30 br/min] 18 br/min (11/20/20 2:45 PM) Temperature [96.8-100.4 DegF] 97.3 DegF (11/20/20 2:45 PM) Mode of Delivery (Oxygen) Room air (11/20/20 2:45 PM) Blood pressure sites Arm, left (11/20/20 2:45 PM) Temperature Route Temporal (11/20/20 2:45 PM) Social History Social History Type Response Smoking Status Never (less than 100 in life time); Interested in cessation: No; Patient wants NRT during admission No entered on: 08/07/20 Sex
--- OUTSIDE RECORDS SUMMARY | 2022-03-10 14:29 | XMS_ITS | Continuity of Care Document ---
:1975 Author Organization [facility] Address [address] [place] [address]- Care Team Providers Name Role Phone Not on Staff, PCP Primary Care Physician Unavailable [place] [facility] [place] 09/[place]/[address] [address]- Attending Physician: Jeffery Jimenes MD Referring Physician: Jeffery Jimenes MD Allergies, Adverse Reactions, Alerts Substance Reaction Severity Status NKA Active Immunizations Given and Recorded Vaccine Date Status Refusal Reason SARS-CoV-2 (COVID-19) Ad26 vaccine1 06/16/20 Recorded 1Result Comment: Information given by patient Medications Abilify 5 mg oral tablet 5 mg, 1, tablet, By Mouth, Daily, # 30 tablet, Refills 0, Tot. Refills 0, Maintenance, 08/17/20 9:16:00 EDT, Route to Pharmacy Electronically, [facility], Partial fill upon patient request if the prescription is for a schedule II o... Start Date: 08/17/20 Status: Orderedlisinopril 10 mg oral tablet 10 mg, 1, tablet, By Mouth, Daily, Refills 0, Maintenance, 08/17/20 10:01:00 EDT, Partial fill upon patient request if the prescription is for a schedule II opioid drug. Start Date: 08/17/20 Status: Ordered Social History Social History Type Response Smoking Status Never (less than 100 in life time); Interested in cessation: No; Patient wants NRT during admission No entered on: 08/07/20 Sex
--- OUTSIDE RECORDS SUMMARY | 2022-03-10 14:29 | XMS_ITS | Continuity of Care Document ---
:1975 Author Organization [facility] Address [address] [place] [address]- Care Team Providers Name Role Phone Maria Isabel Bobo MD, Amanda Charles Primary Care Physician Encounter [facility] [place] Date(s): 11/05/21 - 12/05/21 [facility] [address] [place] [address]- Attending Physician: Gabbie Manley Admitting Physician: Gabbie Manley Referring Physician: Gabbie Manley Allergies, Adverse Reactions, Alerts Substance Reaction Severity Status Dust Active Pollen Active Immunizations Given and Recorded Vaccine Date Status Refusal Reason SARS-CoV-2 (COVID-19) Ad26 vaccine1 06/16/20 Recorded 1Result Comment: Information given by patient Medications Abilify 5 mg oral tablet 5 mg, 1, tablet, By Mouth, Daily, # 30 tablet, Refills 0, Tot. Refills 0, Maintenance, 08/17/20 9:16:00 EDT, Route to Pharmacy Electronically, [facility], Partial fill upon patient request if the prescription is for a schedule II o... Start Date: 08/17/20 Status: Orderedlisinopril 10 mg oral tablet 10 mg, 1, tablet, By Mouth, Daily, Refills 0, Maintenance, 08/17/20 10:01:00 EDT, Partial fill upon patient request if the prescription is for a schedule II opioid drug. Start Date: 08/17/20 Status: OrderedMetamucil 400 mg oral capsule 1 capsule = 400 mg, By Mouth, 2 times a day, PRN as needed for constipation, with at least 8 ounces of water, # 160 capsule, 1 Refills, Acute 11/06/22 13:45:00 EDT, 11/05/21 13:44:00 EDT, Capsule, [facility], Partial fill upon ginny... Start Date: 11/05/21 Stop Date: 11/06/22 Status: OrderedNaproxen = 500 mg, By Mouth, 3 times a day, 0 Refills, Maintenance, 06/19/21 11:08:00 EDT, Partial fill upon patient request if the prescription is for a schedule II opioid drug. Start Date: 06/19/21 Status: Orderedomeprazole 20 mg oral enteric coated capsule 1 capsule = 20 mg, By Mouth, Daily, take as needed for dyspepsia French hemant., # 30 capsule, 3 Refills, Maintenance, 11/05/21 13:56:00 EDT, EC Capsule, [facility], Partial fill upon patient request if the prescription is for a... Start Date: 11/05/21 Status: OrderedPEG-3350 with Electrolytes Lemon (Eqv-GoLYTELY) oral powder for reconstitution See Instructions, French instructions please. Mix powder with water according to the [facility] instructions. Stating when to drink the perp fluid on the evening befoer the colonosoccopy. 8 oz every 20 minutes., # 1 each, 0 Refills, Maintenance, .. Start Date: 11/05/21 Status: Ordered Problem List Condition Confirmation Course Effective Dates Status Health Stat us Informant Severe obesity Confirmed Active Social History Social History Type Response Smoking Status Never (less than 100 in life time); Interested in cessation: No; Patient wants NRT during admission No entered on: 08/07/20 Sex Patient Care team information PersonnelName: Maria Isabel Bobo MD, Amanda Charles Address: Address: [address] [place] [address] [address] [place], [place] [address]
--- OUTSIDE RECORDS SUMMARY | 2022-03-10 14:29 | XMS_ITS | Continuity of Care Document ---
:1975 Author Organization [facility] Address [address] [place] [address]- Care Team Providers Name Role Phone Maria Isabel Bobo MD, Amanda Charles Primary Care Physician Encounter [facility] [place](s): 06/21/21 - 08/21/[address] [address] Attending Physician: Aurelia Hirsch MD Admitting Physician: Aurelia Hirsch MD Referring Physician: Aurelia Hirsch MD Allergies, Adverse Reactions, Alerts Substance Reaction Severity Status Dust Active Pollen Active Immunizations Given and Recorded Vaccine Date Status Refusal Reason SARS-CoV-2 (COVID-19) Ad26 vaccine1 06/16/20 Recorded 1Result Comment: Information given by patient Medications Abilify 5 mg oral tablet 5 mg, 1, tablet, By Mouth, Daily, # 30 tablet, Refills 0, Tot. Refills 0, Maintenance, 08/17/20 9:16:00 EDT, Route to Pharmacy Electronically, [facility], Partial fill upon patient request if the prescription is for a schedule II o... Start Date: 08/17/20 Status: Orderedlisinopril 10 mg oral tablet 10 mg, 1, tablet, By Mouth, Daily, Refills 0, Maintenance, 08/17/20 10:01:00 EDT, Partial fill upon patient request if the prescription is for a schedule II opioid drug. Start Date: 08/17/20 Status: OrderedNaproxen = 500 mg, By Mouth, 3 times a day, 0 Refills, Maintenance, 06/19/21 11:08:00 EDT, Partial fill upon patient request if the prescription is for a schedule II opioid drug. Start Date: 06/19/21 Status: Ordered Problem List Condition Effective Dates Status Health Status Informant Obese class II(Confirmed) Active Social History Social History Type Response Smoking Status Never (less than 100 in life time); Interested in cessation: No; Patient wants NRT during admission No entered on: 08/07/20 Sex
--- OUTSIDE RECORDS SUMMARY | 2022-03-10 14:29 | XMS_ITS | Continuity of Care Document ---
:1975 Author Organization [facility] Address [address] [place] [address]- Care Team Providers Name Role Phone Not on Staff, PCP Primary Care Physician Unavailable Encounter [facility] [place] Date(s): 11/13/20 - 11/17/[address] [address]- Encounter Diagnosis Delusions (Final) - 11/17/20 Discharge Disposition: A-D/C Home Attending Physician: Zeus Aguilar DO Admitting Physician: Zeus Aguilar DO Referring Physician: Not on Staff, Referring MD [...] 08/17/20 9:16:00 EDT, Route to Pharmacy Electronically, [facility], Partial fill upon patient request if the prescription is for a schedule II o... Start Date: 08/17/20 Status: Orderedcephalexin monohydrate 500 mg oral tablet 1 tablet = 500 mg, By Mouth, 4 times a day, for 7 days, # 28 tablet, 0 Refills, Acute 11/21/20 22:53:00 EDT, 11/14/20 22:53:00 EDT, Tablet, [facility], Partial fill upon patient request if the prescription is for a schedule II opio... Start Date: 11/14/20 Stop Date: 11/21/20 Status: Orderedlisinopril 10 mg oral tablet 10 mg, Tablet, By Mouth, 11/16/20 9:00:00 EDT Start Date: 11/16/20 Stop Date: 11/16/20 Status: Completedlisinopril 10 mg oral tablet 10 mg, 1, tablet, By Mouth, Daily, Refills 0, Maintenance, 08/17/20 10:01:00 EDT, Partial fill upon patient request if the prescription is for a schedule II opioid drug. Start Date: 08/17/20 Status: Ordered Results Radiology Reports Exam Date Time Procedure Performing Provider Status 11/14/20 4:57 AM Chest 2 Views Frontal and Lat Mena Grimaldo ; Auth (Verified) Notes:(Chest 2 Views Frontal and Lat) Reason For Exam: Chest Pain;Other:RESULT: Chest 2 Views Frontal and Lat Chest 2 Views Frontal and Lat Hx of Present Illness: Pt c o headache chest pain. COMPARISON: None. FINDINGS: LINES AND TUBES: None. LUNGS AND PLEURA: Lung volumes are low. Clear lungs. Normal pulmonary vascularity. No pleural effusion. No pneumothorax. HEART, MEDIASTINUM AND HO: Heart is normal in size. Normal upper mediastinal and hilar contour. BONES AND SOFT TISSUES: No acute abnormality. Colonic transposition beneath the left hemidiaphragm. IMPRESSION: No acute abnormality. WSN: [id number] Ordering Physician: Myah Leach Dictated By: Noemi Interiano MD Dictated Date/Time: 11/14/20 8:14 am Reviewed By: Noemi Interiano MD Signed By: Noemi Interiano MD Signed Date/Time: 11/14/20 8:14 am Transcribed By: JEFF Transcribed Date/Time: 11/14/20 8:13 am Vital Signs Most recent to oldest 1 2 3 [Reference Range]: Oxygen Saturation [94-100 %] 100 % 100 % 99 % (11/16/20 5:01 PM) (11/16/20 1:06 PM) (11/16/20 5:5 4 AM) Pulse Rate [55-90 bpm] 66 bpm 78 bpm 60 bpm (11/16/20 5:01 PM) (11/16/20 1:06 PM) (11/16/20 5:5 4 AM) Blood Pressure [90-138/55-84 mm 112/59 mm Hg 114/68 mm Hg 107/50 mm Hg Hg] (11/16/20 5:01 PM) (11/16/20 1:06 PM) (11/16/20 8:2 5 AM) Respiratory Rate [16-30 br/min] 16 br/min 16 br/min 17 br/min (11/16/20 5:01 PM) (11/16/20 1:06 PM) (11/16/20 5:5 4 AM) Temperature [96.8-100.4 DegF] 98.7 DegF 98.2 DegF 98 .3 DegF (11/16/20 5:01 PM) (11/16/20 1:06 PM) (11/16/20 5:5 4 AM) Mode of Delivery (Oxygen) Room air Room air Room a ir (11/16/20 5:01 PM) (11/16/20 1:06 PM) (11/16/20 5:5 4 AM) Blood pressure sites Arm, left Arm, right Arm, right (11/16/20 5:01 PM) (11/16/20 1:06 PM) (11/15/20 5:55 PM) Temperature Route Oral Oral Oral (11/16/20 5:01 PM) (11/16/20 1:06 PM) (11/16/20 5:5 4 AM) Social History Social History Type Response Smoking Status Never (less than 100 in life time); Interested in cessation: No; Patient wants NRT during admission No entered on: 08/07/20 Sex
--- OUTSIDE RECORDS SUMMARY | 2022-03-10 14:29 | XMS_ITS | Continuity of Care Document ---
:1975 Author Organization [facility] Address [address] [place] [address]- Care Team Providers Name Role Phone Not on Staff, PCP Primary Care Physician Unavailable Encounter [facility] [place](s): 04/23/21 - 05/23/21 [facility] [address] [place], [place] [address] Attending Physician: Gabbie Manley Admitting Physician: Gabbie Manley Referring Physician: AdmtrGabbie Allergies, Adverse Reactions, Alerts No Known Allergies Immunizations Given and Recorded Vaccine Date Status Refusal Reason SARS-CoV-2 (COVID-19) Ad26 vaccine1 06/16/20 Recorded 1Result Comment: Information given by patient Medications Abilify 5 mg oral tablet 5 mg, 1, tablet, By Mouth, Daily, # 30 tablet, Refills 0, Tot. Refills 0, Maintenance, 08/17/20 9:16:00 EDT, Route to Pharmacy Electronically, [facility], Partial fill upon patient request [...]
--- OUTSIDE RECORDS SUMMARY | 2022-03-10 14:30 | XMS_ITS | Continuity of Care Document ---
:1975 Author Organization [facility] Address [address] [place] [address]- Care Team Providers Name Role Phone Not on Staff, PCP Primary Care Physician Unavailable Encounter [facility] Date(s): 11/20/20 - 12/20/20 [facility] [address] [place] [address]- Attending Physician: Gabbie Manley Admitting Physician: Gabbie [...] 08/17/20 9:16:00 EDT, Route to Pharmacy Electronically, [facility], Partial fill upon patient request [...]
--- OUTSIDE RECORDS SUMMARY | 2022-03-10 14:30 | XMS_ITS | Continuity of Care Document ---
:1975 Author Organization [facility] Address [address] [place] [address]- Care Team Providers Name Role Phone Maria Isabel Bobo MD, Amanda Charles Primary Care Physician [phone] [place] [facility] [place] 12/07/21 [facility] [address] [place], [place] [address] Attending Physician: Aurelia Hirsch MD Admitting Physician: Aurelia Hirsch MD Referring Physician: Amanda Olivas MD Allergies, Adverse Reactions, Alerts Substance Reaction Severity Status Dust Active Pollen Active Immunizations Given and Recorded Vaccine Date Status Refusal Reason SARS-CoV-2 (COVID-19) Ad26 vaccine1 06/16/20 Recorded 1Result Comment: Information given by patient Medications Abilify 5 mg oral tablet 5 mg, 1, tablet, By Mouth, Daily, # 30 tablet, Refills 0, Tot. Refills 0, Maintenance, 08/17/20 9:16:00 EDT, Route to Pharmacy Electronically, [facility], Partial fill upon patient request [...] 11/06/22 13:45:00 EDT, 11/05/21 13:44:00 EDT, Capsule, [facility], Partial fill upon ginny... Start [...] Mouth, Daily, take as needed for dyspepsia Swiss pleasae., # 30 capsule, 3 Refills, Maintenance, 11/05/21 13:56:00 EDT, EC Capsule, [facility], Partial fill upon patient request if the prescription is for a... Start Date: 11/05/21 Status: OrderedPEG-3350 with Electrolytes Lemon (Eqv-GoLYTELY) oral powder for reconstitution See Instructions, Swiss instructions please. Mix powder with water according to the [facility] instructions. Stating when to drink the perp fluid on the evening befoer the colonosoccopy. 8 oz every 20 minutes., # 1 each, 0 Refills, Maintenance, ... Start Date: 11/05/21 Status: Ordered Problem List Condition Confirmation Course Effective Dates Status Health Stat us Informant Severe obesity Confirmed Active Social History Social History Type Response Smoking Status Never (less than 100 in life time); Interested in cessation: No; Patient wants NRT during admission No entered on: 08/07/20 Sex Patient Care team information PersonnelName: Maria Isabel Bobo MD, Amanda Charles Address: Address: [address] [place] [address] [address] [place], [place] [address]
--- OUTSIDE RECORDS SUMMARY | 2022-03-10 14:30 | XMS_ITS | Continuity of Care Document ---
:1975 Author Organization [facility] Address [address] [place] [address]- Care Team Providers Name Role Phone Not on Staff, PCP Primary Care Physician Unavailable [place] [facility] [place] 03/[place] - 05/23/21 [facility] [address] [place], [place] [address] Attending Physician: Bjorn Dupont MD Admitting Physician: Bjorn Dupont MD Referring Physician: Amanda Olivas MD Allergies, Adverse Reactions, Alerts No Known Allergies Immunizations Given and Recorded Vaccine Date Status Refusal Reason SARS-CoV-2 (COVID-19) Ad26 vaccine1 06/16/20 Recorded 1Result Comment: Information given by patient Medications Abilify 5 mg oral tablet 5 mg, 1, tablet, By Mouth, Daily, # 30 tablet, Refills 0, Tot. Refills 0, Maintenance, 08/17/20 9:16:00 EDT, Route to Pharmacy Electronically, [facility], Partial fill upon patient request [...]
[2022-03-10 15:13] LABS: Influenza A PCR NEGATIVE (Negative); Influenza B PCR NEGATIVE (Negative); Resp Syncy Virus RNA Qual PCR NEGATIVE (Negative); SARS COV2 PCR INHOUSE NEGATIVE (Negative)
[2022-03-10] MEDS: Ketorolac Tromethamine 30 MG/ML VIAL IM (17:20)
== END 2022-03-10 17:26 | disposition home or self-care (01) ==
PROVIDERS: Physician Assistant Medical; Emergency Provider Internal Medicine; PCP Internal Medicine
DX: B34.9 Viral infection, unspecified (principal); Z20.828 Contact with and (suspected) exposure to other viral communicable diseases; I10 Essential (primary) hypertension; R73.03 Prediabetes; Z79.899 Other long term (current) drug therapy
CPT/HCPCS: 0241U; 71046; 96372; 99283; 99284; J1885

== ENCOUNTER 2022-08-28 14:19 | Emergency (ER) | payer MEDICAID, SELFPAY ==
--- NOTE | ~2022-08-28 | CT_ITS ---
EXAMINATION: CT HEAD WITHOUT CONTRAST CLINICAL INFORMATION: Severe headache COMPARISON: None available. TECHNIQUE: Contiguous axial imaging was performed from the skull base to vertex without intravenous administration of contrast. This CT examination was performed using dose optimization techniques as appropriate, variously including the following: *Automated exposure control *Adjustment of mA and/or kV according to patient size (this includes techniques or standardized protocols for targeted exams where dose is matched to indication/reason for exam; i.e. extremities or head) *Use of iterative reconstruction technique DLP: 821 mGy-cm FINDINGS: There is no evidence of acute intracranial hemorrhage or edematous territorial infarction. No abnormal mass effect or midline shift is seen. Geller to white matter differentiation is well preserved. No extra-axial fluid collections are identified. The ventricles are normal in size. No abnormal attenuation in the brain parenchyma. No acute calvarial fracture.. Paranasal sinuses and mastoid air cells are well-aerated. CT/CT head/brain wo IV con IMPRESSION: No CT evidence of acute intracranial hemorrhage or edematous acute infarction. Etiology of the patient's symptoms has not been determined by noncontrast CT. Follow-up CT or further evaluation with CTA/MRI as clinically warranted.
[2022-08-28 14:36] VITALS: BP 144/74; PULSE 86; RESP 18; TEMP 36.8; O2SAT 98; BMI 40.2
--- NOTE | 2022-08-28 14:56 | ED_ITS ---
HPI - General Adult General Chief complaint: Headache Stated complaint: headache, dizziness Time Seen by Provider: 08/28/22 16:25 Source: patient Mode of arrival: ambulatory Limitations: no limitations History of Present Illness HPI narrative: This is a 46-year-old female history venous insufficiency, mood disorder, prediabetes, MARK, fibromyalgia, polyarthralgia presenting to the emergency department for evaluation of constant headache for the past few months and intermittent dizziness. Patient comes in because the headaches not going away. He reports that dizziness is described as lightheadedness, not present at this time but at times becomes present. She tells me she is feeling this way due to all the air pollution and chemicals in the air. Also concerned about the fires in [place]. Reports progressively worsening vision for years but no acute changes. Patient denies neck pain, fevers, chills, altered mental status, seizure-like activity, chest pain, shortness of breath, nausea, vomiting, abdomi nal pain. NIH stroke scale 0 Related Data Home Medications Medication Instructions Recorded Confirmed finasteride 5 mg tablet 5 mg PO DAILY 01/24/20 06/27/20 lisinopril 10 mg tablet 10 mg PO DAILY 06/27/20 06/27/20 naproxen 500 mg tablet 500 mg PO BID 07/26/20 aripiprazole 5 mg tablet (Abilify) 5 mg PO BEDTIME 11/06/20 furosemide 20 mg tablet 20 mg PO DAILY 11/06/20 Previous Rx's Medication Instructions Recorded cephalexin 750 mg capsule 750 mg PO TID #30 caps 12/05/20 hydrochlorothiazide 25 mg tablet 25 mg PO Q OTHER DAY #40 tabs 12/05/20 acetaminophen 325 mg tablet 650 mg PO Q4H PRN fever or pain 03/10/22 (Tylenol) #30 tabs ibuprofen 600 mg tablet 600 mg PO Q6H PRN pain #30 tabs 03/10/22 acetaminophen 325 mg tablet 650 mg PO Q6H PRN pain #20 tabs 08/28/22 (Tylenol) diphenhydramine HCl 25 mg capsule 25 mg PO TID PRN allergic reaction 08/28/22 (Benadryl) #20 caps metoclopramide HCl 10 mg tablet 10 mg PO Q6H PRN headache #20 tabs 08/28/22 (Reglan) Allergies Allergy/AdvReac Type Severity Reaction Status Date / Time No Known Allergies Allergy Verified 10/18/21 14:16 [No Known Allergies*] Review of Systems Review of Systems: Constitutional : No Weight loss, No Fever, No Chills, No Fatigue, No Malaise ENT/Mouth : No sore throat, No Rhinorrhea Eyes: No Eye Pain, No Swelling, No Redness Cardiovascular : No Chest Pain, No SOB, No Dyspnea on Exertion, No Orthopnea, No Edema, No Palpitations Respiratory : No Cough, No Sputum, No Wheezing Gastrointestinal : No Nausea, No Vomiting, No Diarrhea, No Constipation, No abdo ronnell Pain, No Hematochezia, No Melena Genitourinary : No Dysuria, No Urinary Frequency, No Hematuria, Musculoskeletal : No joint pain, No Myalgias, No Joint Swelling Skin : No Skin Lesions, No rash Neuro : No Weakness, No Numbness, No Dizziness, + Headache Psych : No Anxiety/Panic, No Depression All other systems reviewed and are negative Yes all other systems are reviewed and are negative [facility] Past Medical History Attestation statement: The following information was validated with the patient. Source: old records reviewed and nursing notes reviewed Medical History Alopecia Arthritis of knee, right Mood disorder Prediabetes Venous insufficiency Vitamin D deficiency Surgical History Previous section Family History Family History Mother HTN (hypertension) Diabetes Social History Social History Household Members: None Housing: House Alcohol intake: never Patient Tobacco Use Status: Never used Tobacco Advance Directives: No Advance Directives Information Provided: No Current occupational status: unemployed Current occupation: Right Handed Physical Exam ED Vital Signs: Vital Signs - 24 hr 08/28/22 14:36 08/28/22 16:33 08/28/22 16:34 Temperature 98.3 F Pulse Rate 86 79 79 Respiratory Rate 18 14 Blood Pressure 144/74 H 126/65 126/65 Pulse Oximetry 98 99 Oxygen Delivery Method Room Air Room Air 08/28/22 16:34 08/28/22 16:36 Temperature Pulse Rate 78 92 Respiratory Rate Blood Pressure 131/65 166/86 H Pulse Oximetry Oxygen Delivery Method BMI result Body Mass Index 40.2 vss Appearance: Alert.? Oriented X3.? No acute distress.? Head: Normocephalic, atraumatic, no step-offs or deformities Eyes: Pupils equal, round and reactive to light.? CVS: Normal heart rate and rhythm.? Pulses normal.? Respiratory: No respiratory distress.? Breath sounds normal.? Abdomen: Soft and nontender.? Skin: Skin warm and dry.? Normal skin color.? Normal skin turgor.? Extremities: No lower extremity edema.? No calf ttp. 5/5 strength to bilateral upper and lower extremities Back: No midline tenderness, no C-spine tenderness, full range of motion, no CVA tenderness bilaterally Neuro: Oriented X 3.? No motor deficit.? No sensory deficit. CN 2-12 intact . Normal [id number], ynfq-by-[id number], steady tandem gait with normal coordination. Negative Romberg and pronator drift. 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 NIH stroke scale 0. Course Course Course Narrative: This is an RME: Additional HPI, ROS, PE not included below will be deferred to primary provider. [id number], hx of headaches, hypertension, and fibromyalgia, presenting to the ER for evaluation of intermittent headaches x 1 month. Reevaluation(s) Reevaluation #1: Head CT with no acute findings. Patient's NIH Stroke Scale remains negative, patient well appearing. Reassured her of these findings. Will have her follow- up with Neurology. Will discharge her with Reglan, Benadryl and advised her to take Tylenol with these medications. Educated patient on diagnosis and treatment plan, answered all question, patient verbalizes understanding. At thi s time patient will be discharged home, advised to return with new or worsening symptoms. Educated on worrisome signs and symptoms and when to return. At this time I feel comfortable discharge home. Time: 17:43 Medical Decision Making Medical Decision Making [facility] Narrative: [id number] 46-year-old female presents for evaluation of constant headache, dizziness intermittent for the past few months. Physical examination benign. Neuro nonfocal, cerebellar intact. NIH stroke scale 0. Likely complex migraine versus headache versus migraine. Unlikely stroke, posterior stroke, intracranial hemorrhage. Will rule out BPPV, vertigo, orthostatic hypotension. Unlikely encephalitis or meningitis Plan orthostatic vitals, medication, fluids. Orthostatics negvative. Differential Diagnosis Differential Diagnoses: The differential diagnosis associated with the presentation includes Likely complex migraine versus headache versus migraine. Unlikely stroke, posterior stroke, intracranial hemorrhage. Will rule out BPPV, vertigo, orthostatic hypotension. Unlikely encephalitis or meningitis Admission/Observation Consideration of admission/observation: Escalation of care including admission/observation considered Unlikely Independent Interpretation I performed an independent interpretation of an: CT Scan (CT/CT head/brain wo IV con IMPRESSION: No CT evidence of acute intracranial hemorrhage or edematous acute infarction. Etiology of the patient's symptoms has not been determined by noncontrast CT. Follow-up CT or further evaluation with CTA/MRI as clinically warranted.) Radiology Impression Discussion of test interpretation with radiology: I have reviewed the radiologist's reading. Tests considered The following testing was considered but not selected: NIH stroke scale is 0, exam nonfocal. No indication for MRI I do not suspect acute stroke Core Measures AMI core measures followed: Yes Measure exclusions: not indicated Critical Care Time Critical Care Time Critical Care Time: No Discharge Plan Discharge Clinical Impression: Headache, Dizziness Patient Disposition: Home, Self-Care Instructions: Acute Headache (ED), Dizziness (ED) Additional Instructions: Take your medications as prescribed. If you were prescribed antibiotics today, it is important that you take your medication to their entirety, do not skip any doses, do not finish them early. Follow-up with your primary care provider this week. Return to the emergency department with new or worsening symptoms. Such as fevers, chills, chest pain, shortness of breath, nausea, vomiting, dizziness, headache, vision changes, lethargy In case of emergency call 911 You can take Tylenol in addition to Reglan and Benadryl. When you are taking Reglan and Benadryl it is important that you take them together, taking Reglan alone can lead to involuntary muscle spasms. These can be taken together for a headache/migraine ?CT/CT head/brain wo IV con IMPRESSION: No CT evidence of acute intracranial hemorrhage or edematous acute infarction. Etiology of the patient's symptoms has not been determined by noncontrast CT. Follow-up CT or further evaluation with CTA/MRI as clinically warranted. ? ? Prescriptions: New diphenhydramine HCl [Benadryl] 25 mg capsule 25 mg PO TID PRN (Reason: allergic reaction) Qty: 20 0RF metoclopramide HCl [Reglan] 10 mg tablet 10 mg PO Q6H PRN (Reason: headache) Qty: 20 0RF acetaminophen [Tylenol] 325 mg tablet 650 mg PO Q6H PRN (Reason: pain) Qty: 20 0RF No Action ibuprofen 600 mg tablet 600 mg PO Q6H PRN (Reason: pain) Qty: 30 0RF acetaminophen [Tylenol] 325 mg tablet 650 mg PO Q4H PRN (Reason: fever or pain) Qty: 30 0RF hydrochlorothiazide 25 mg tablet 25 mg PO Q OTHER DAY Qty: 40 0RF Rx Instructions: Take daily for 1 week, then every other day cephalexin 750 mg capsule 750 mg PO TID Qty: 30 0RF finasteride 5 mg tablet 5 mg PO DAILY lisinopril 10 mg tablet 10 mg PO DAILY naproxen 500 mg tablet 500 mg PO BID aripiprazole [Abilify] 5 mg tablet 5 mg PO BEDTIME furosemide 20 mg tablet 20 mg PO DAILY Referrals: Amanda Olivas MD [Primary Care Provider] - 2 days [facility] [place] [facility] [Provider Group] - 2 days Stand Alone Forms: Work/School Release
[2022-08-28 16:33] VITALS: BP 126/65; PULSE 79; RESP 14; O2SAT 99
[2022-08-28 16:34] VITALS: BP 126/65; BP 131/65; PULSE 78; PULSE 79
[2022-08-28 16:36] VITALS: BP 166/86; PULSE 92
[2022-08-28] MEDS: 0.9 % Sodium Chloride 1,000 ML 999 ML IV (17:44)
[2022-08-28] MEDS: Acetaminophen 325 MG TABLET 650 MG PO (17:47)
[2022-08-28] MEDS: Metoclopramide HCl 10 MG TABLET PO (17:47)
[2022-08-28] MEDS: diphenhydrAMINE HCL 25 MG CAPSULE PO (17:47)
[2022-08-28 18:40] VITALS: BP 112/51; PULSE 76; RESP 18; O2SAT 100
== END 2022-08-28 19:29 | disposition home or self-care (01) ==
PROVIDERS: Emergency Provider Emergency Medicine; PCP Internal Medicine
DX: R51.9 Headache, unspecified (principal); R42 Dizziness and giddiness; E11.9 Type 2 diabetes mellitus without complications; Z79.899 Other long term (current) drug therapy
CPT/HCPCS: 70450; 99284

== ENCOUNTER 2022-10-23 21:06 | Outpatient (REF) | payer MEDICAID, SELFPAY ==
[2022-10-24 15:17] LABS: BV Int Neg Control Negative (Negative); BV Int Pos Control Positive (Positive)
[2022-10-27 20:34] LABS: HPV mRNA E6/E7 rflx Not Detected (Not Detected)
== END 2022-10-23 21:07 | disposition home or self-care (01) ==
LOC: HO.HHCLNP 21:06
PROVIDERS: Visit Provider Internal Medicine
DX: Z12.4 Encounter for screening for malignant neoplasm of cervix (principal); Z11.51 Encounter for screening for human papillomavirus (HPV); N89.8 Other specified noninflammatory disorders of vagina
CPT/HCPCS: 87480; 87510; 87624; 87660; 88142

== ENCOUNTER 2023-05-27 16:56 | Emergency (ER) | payer MEDICAID, SELFPAY ==
--- NOTE | ~2023-05-27 | CT_ITS ---
EXAMINATION: CT head/brain wo IV con CLINICAL INFORMATION: Reason for Exam headache, HTN COMPARISON: CT head without contrast 08/28/2022 TECHNIQUE: Contiguous axial imaging was performed from the skull base to vertex without intravenous contrast. Sagittal and coronal reformatted images were obtained. This CT examination was performed using dose optimization techniques as appropriate, variously including the following: * Automated exposure control * Adjustment of mA and/or kV according to patient size (this includes techniques or standardized protocols for targeted exams where dose is matched to indication/reason for exam; i.e. extremities or head) Use of iterative reconstruction technique DLP: 625.34 mGy-cm FINDINGS: No acute osseous or soft tissue abnormality. The mastoids are clear. Mild left maxillary sinus mucosal thickening. There is no evidence of acute intracranial hemorrhage or territorial infarction. No abnormal mass effect or midline shift is seen. Geller to white matter differentiation is well preserved. No extra-axial fluid collections are identified. No hydrocephalus. No significant volume loss. There is no abnormal attenuation within the brain parenchyma. CT/CT head/brain wo IV con IMPRESSION: No acute intracranial abnormality including hemorrhage, mass effect, hydrocephalus, or acute territorial edematous infarction.
--- NOTE | ~2023-05-27 | CT_ITS ---
EXAMINATION: CT ABDOMEN AND PELVIS WITHOUT CONTRAST CLINICAL INFORMATION: Abdominal pain COMPARISON: None available. TECHNIQUE: Multidetector volumetric imaging was performed from the superior aspect of the liver through the pubic symphysis. Sagittal and coronal reformatted images were obtained on the technologist's workstation. This CT examination was performed using dose optimization techniques as appropriate, variously including the following: *Automated exposure control *Adjustment of mA and/or kV according to patient size (this includes techniques or standardized protocols for targeted exams where dose is matched to indication/reason for exam; i.e. extremities or head) *Use of iterative reconstruction technique DLP: 882 mGy-cm FINDINGS: LUNG BASES: Mild cardiac enlargement. No infiltrates or effusions. LIVER, GALLBLADDER, AND BILIARY TREE: The liver is enlarged measuring 18.3 cm in cephalocaudad dimension. Attenuation and shape normal. No focal hepatic lesion or biliary ductal dilatation is present. The gallbladder is unremarkable with no evidence of radiopaque gallstones, gallbladder wall thickening, or obvious pericholecystic inflammatory changes. PANCREAS: Unremarkable. SPLEEN: Unremarkable. ADRENAL GLANDS: Unremarkable. KIDNEYS AND URETERS: The kidneys are normal in size, shape, and attenuation. No hydronephrosis, hydroureter, or calculi seen. No perinephric stranding. A benign left lower pole 1.6 cm Bosniak class I renal cyst is noted which requires no additional imaging or follow up. No solid renal masses are seen. BLADDER: Unremarkable. GASTROINTESTINAL TRACT: The small and large bowel are unremarkable. Some colonic diverticula are present but no evidence of diverticulitis. The appendix is not seen with certainty but there is no evidence of appendicitis appendicitis.. ABDOMINAL WALL: No significant hernia is appreciated. There is mild diastases of the rectus muscles. LYMPH NODES: Shotty retroperitoneal and iliac nodes are present but there is no gross adenopathy. VASCULAR: Unremarkable. PELVIC VISCERA: The uterus and adnexa are unremarkable. OSSEOUS STRUCTURES: Degenerative changes are present thoracic spine at L5-S1. CT/CT abdomen pelvis wo IV con IMPRESSION: 1. A cause for the patient's abdominal pain has not been found. 2. Incidental note made of mild cardiomegaly, mild hepatomegaly and colonic diverticulosis without diverticulitis. Fleischner guidelines were followed.
[2023-05-27 17:23] VITALS: BP 174/77; PULSE 84; RESP 20; TEMP 37.1; O2SAT 100; BMI 43.2
--- NOTE | 2023-05-27 17:28 | ED_ITS ---
HPI - General Adult General Chief complaint: General Medical Stated complaint: Reffered by [facility] + headache Time Seen by Provider: 05/27/23 23:28 Source: patient Mode of arrival: ambulatory Limitations: no limitations History of Present Illness HPI narrative: 47-year-old female history venous insufficiency, mood disorder, prediabetes, MARK, fibromyalgia, polyarthralgia presenting to the emergency department for evaluation of constant headache for the past few months and diffuse abdominal pain X 3 days. Also wants us to look into her pressure according to patient her blood pressure at [facility] was 200/120. Patient comes in because the headaches not going away and her blood pressure is making her worried. She is feeling anxious fromall this. Patient denies neck pain, fevers, chills, altered mental status, seizure-like activity, chest pain, shortness of breath, nausea, vomiting, diarrhea, visual changes, weakness Related Data Home Medications Medication Instructions Recorded Confirmed finasteride 5 mg tablet 5 mg PO DAILY 01/24/20 06/27/20 lisinopril 10 mg tablet 10 mg PO DAILY 06/27/20 06/27/20 naproxen 500 mg tablet 500 mg PO BID 07/26/20 aripiprazole 5 mg tablet (Abilify) 5 mg PO BEDTIME 11/06/20 furosemide 20 mg tablet 20 mg PO DAILY 11/06/20 Previous Rx's Medication Instructions Recorded cephalexin 750 mg capsule 750 mg PO TID #30 caps 12/05/20 hydrochlorothiazide 25 mg tablet 25 mg PO Q OTHER DAY #40 tabs 12/05/20 acetaminophen 325 mg tablet 650 mg (2 x 325 mg) PO Q4H PRN 03/10/22 (Tylenol) fever or pain #30 tabs ibuprofen 600 mg tablet 600 mg PO Q6H PRN pain #30 tabs 03/10/22 acetaminophen 325 mg tablet 650 mg (2 x 325 mg) PO Q6H PRN 08/28/22 (Tylenol) pain #20 tabs diphenhydramine HCl 25 mg capsule 25 mg PO TID PRN allergic reaction 08/28/22 (Benadryl) #20 caps metoclopramide HCl 10 mg tablet 10 mg PO Q6H PRN headache #20 tabs 08/28/22 (Reglan) acetaminophen 325 mg capsule 325 mg PO Q4H PRN pain #30 caps 05/27/23 (Tylenol) docusate sodium 100 mg capsule 100 mg PO BID #20 caps 05/28/23 (Colace) sennosides 8.6 mg tablet (senna) 8.6 mg PO BEDTIME #14 tabs 05/28/23 Allergies Allergy/AdvReac Type Severity Reaction Status Date / Time No Known Allergies Allergy Verified 05/27/23 17:34 [No Known Allergies*] Review of Systems 2 Review of Systems: Yes all other systems are reviewed and are negative [facility] Past Medical History Attestation statement: The following information was validated with the patient. Source: old records reviewed and nursing notes reviewed Medical History Venous insufficiency Arthritis of knee, right Prediabetes Alopecia Vitamin D deficiency Mood disorder Surgical History Previous section Family History Family History Mother HTN (hypertension) Diabetes Social History Social History Household Members: None Housing: House Alcohol intake: never Patient Tobacco Use Status: Never used Tobacco Advance Directives: No Advance Directives Information Provided: Yes Current occupational status: unemployed Current occupation: Right Handed Physical Exam ED Vital Signs: Vital Signs - 24 hr 05/27/23 17:23 05/27/23 20:55 Temperature 98.8 F 98.7 F Pulse Rate 84 80 Respiratory Rate 20 20 Blood Pressure 174/77 H 165/88 H Pulse Oximetry 100 98 Oxygen Delivery Method Room Air Room Air BMI result Body Mass Index 43.2 vss Appearance: Alert.? Oriented X3.? No acute distress.? Head: Normocephalic, atraumatic, no step-offs or deformities Eyes: Pupils equal, round and reactive to light.?EOMI ENT: Pharynx normal.? Neck: Normal inspection.? Neck supple.? CVS: Normal heart rate and rhythm.? Pulses normal.? Respiratory: No respiratory distress.? Breath sounds normal.? Abdomen: Soft and diifuse tenderness.? Skin: Skin warm and dry.? Normal skin color.? Normal skin turgor.? Extremities: No lower extremity edema.? No calf ttp. 5/5 strength to bilateral upper and lower extremities Back: No midline tenderness, no C-spine tenderness, full range of motion, no CVA tenderness bilaterally Neuro: Oriented X 3.? No motor deficit.? No sensory deficit. CN 2-12 intact . Normal [id number], psyq-[id number] steady tandem gait normal coordination Course Course Course Narrative: This is an RME: Additional HPI, ROS, PE not included below will be deferred to primary provider. This is a [id number]-snd-female, with a hx of HTN noncompliant on medications, presenting to the ER due to high blood pressure and headache. Pt was being seen in an urgent care for abdominal pain however was told to come to the emergency room due to elevated blood pressure. Patient states that she stopped taking her blood pressure medication multiple months ago as she did not like the side effects. 174/77 and 160/85; blood pressure was 200/120 at urgent care. Abdominal pain is 10/10. Diffusely tender Plan: Labs, UA, viral swabs, CT head Reevaluation(s) Reevaluation #1: To note, upon chart review patient presented with a similar presentation on 08/28/2022. Time: 23:36 Reevaluation #2: I repeated patients pressure 150/72, CBC wnl. Chemistry unremarkable.Lipas wnl. Normal BHCG. UA clean ABd and pelvis CT scan pending. Time: 23:45 Reevaluation #3: CT abdomen and pelvis a cause for patient's abdominal pain not identified. Mild cardiomegaly, mild hepatomegaly and colonic diverticulosis without diverticulitis. Patient reports possibly constipated will give medicine for constipation senna and Colace. Will discharge home with same. Patient's pressure much improved patient was anxious. No signs of hypertensive urgency, emergency stroke. No signs acute abdomen. Plan discharge home Educated patient on diagnosis and treatment plan, answered all question, patient verbalizes understanding. At this time patient will be discharged home, advised to return with new or worsening symptoms. Educated on worrisome signs and symptoms and when to return. At this time I feel comfortable discharge home. Medications Administered Discontinued Medications Generic Name Dose Route Start Last Admin Trade Name Freq PRN Reason Stop Dose Admin Docusate Sodium 100 mg 05/28/23 00:18 05/28/23 00:35 Docusate Sodium 100 Mg Capsule PO 05/28/23 00:19 100 mg ONCE ONE Administration Senna 8.6 mg 05/28/23 00:18 05/28/23 00:35 Sennosides 8.6 Mg Tablet PO 05/28/23 00:19 8.6 mg ONCE ONE Administration Medical Decision Making Medical Decision Making [facility] Narrative: 47 year old female presents w/ headaches X months and abd pain diffuse X 3 days w/ a/c high blood pressure and anxiety PE- benign neuro nonfocal . Abd diffuse tenderness NIHSS-0 Likely complex migraine versus headache versus migraine vs viral illness. Unlikely stroke, posterior stroke, intracranial hemorrhage. Unlikely encephalitis or meningitis. Abd pain likely viral vs anxiety vs msk pain vs constipation. Unlikley acute abdomen, appedicitis, obstruction, diverticulitis, cholecystitis, torsion, ectopic . Unlikely temporal arteririts /GCA Plan- labs, urine, ekg, ct scan, viral tests Differential Diagnosis Differential Diagnoses: The differential diagnosis associated with the presentation includes Likely complex migraine versus headache versus migraine vs viral illness. Unlikely stroke, posterior stroke, intracranial hemorrhage. Unlikely encephalitis or meningitis. Abd pain likely viral vs anxiety vs msk pain vs constipation. Unlikley acute abdomen, appedicitis, obstruction, diverticulitis, cholecystitis, torsion, ectopic . Unlikely temporal arteririts/GCA Admission/Observation Consideration of admission/observation: Escalation of care including admission/observation considered Unlikely Lab Data [facility] Lab Attestation statement: I reviewed the patient's lab results. 05/27/23 19:09 05/27/23 19:09 Labs: Lab Results 05/27/23 05/27/23 Range/Units 19:09 19:11 WBC 5.9 (4.8-10.8) X10*3/uL RBC 4.28 (4.20-5.50) X10*6/uL Hgb 11.9 L (12.0-16.0) g/dl Hct 36.2 L (37.0-47.0) % MCV 84.6 (80.0-98.0) fL MCH 27.8 (27.0-33.0) pg MCHC 32.9 (31.0-35.0) g/dl RDW 14.2 (11.0-16.0) % Plt Count 216 (160-400) X10*3/uL MPV 11.3 (9.4-12.3) fL Immature Gran % (Auto) 0.3 (0.0-0.4) % Neut % (Auto) 65.6 (45-73) % Lymph % (Auto) 23.1 (20-40) % [place] % (Auto) 7.5 (2-11) % Eos % (Auto) 3.2 (0-4) % Baso % (Auto) 0.3 (0-2) % Lymph # (Auto) 1.4 (1.2-4.9) X10*3/uL [place] # (Auto) 0.4 (0.1-1.2) X10*3/uL Eos # (Auto) 0.2 (0.0-0.4) X10*3/uL Baso # (Auto) 0.0 (0.0-0.2) X10*3/uL Abs Immat Gran (auto) 0.02 (0.00-0.03) X10*3/uL Absolute Neuts (auto) 3.8 (2.0-8.3) x10*3/uL Absolute Nucleated RBC 0.000 (0.0-0.012) X10*3/uL Nucleated RBC % (auto) 0.0 (0.0-0.2) /100WBC Sodium 138 (135-145) mmol/L Potassium 4.0 (3.3-5.1) mmol/L Chloride 107 (96-108) mmol/L Carbon Dioxide 26 (22-29) mmol/L Anion Gap 9 L (12-20) BUN 15 (9-16) mg/dL Creatinine 0.73 (0.5-1.4) mg/dL Estim Creat Clear Calc 107.2 Estimated GFR > 60 Random Glucose 98 (60-115) mg/dL Calcium 9.4 (8.4-10.2) mg/dL Total Bilirubin 0.1 (0.0-1.0) mg/dL Direct Bilirubin < 0.2 (0.0-0.5) mg/dL AST 24 (5-31) U/L ALT 20 (0-31) U/L Alkaline Phosphatase 66 (39-117) U/L Troponin I High Sens < 2.7 (<3.5-17.0) ng/L Total Protein 7.3 (6.5-8.0) g/dL Albumin 3.9 (3.5-5.0) g/dL Lipase 27 (8-78) U/L Beta HCG, Quant < 2 mIU/mL Urine Color Yellow Urine Appearance Clear Urine pH 7.0 (5.0-9.0) Ur Specific [place] 1.020 (1.005-1.025) Urine Protein 300 (3+) H (Neg-Trace) mg/dL Urine Glucose (UA) Negative (Negative) mg/dL Urine Ketones Negative (Negative) mg/dL Urine Blood Large (3+) H (Negative) Urine Nitrite Negative (Negative) Ur Leukocyte Esterase Negative (Negative) Urine RBC >20 H (0-2) /HPF Urine WBC 6-10 H (0-5) /HPF Ur Squamous Epith Cells 0-2 (0-2) /HPF Urine Bacteria None Seen (None Seen) Hyaline Casts 0-2 (0-2) /LPF Influenza Type A (PCR) NEGATIVE (Negative) Influenza Type B (PCR) NEGATIVE (Negative) RSV RNA Qual (PCR) NEGATIVE (Negative) SARS-CoV-2 RNA (RT-PCR) NEGATIVE (Negative) Independent Interpretation I performed an independent interpretation of an: CT Scan (CT/CT head/brain wo IV con IMPRESSION: No acute intracranial abnormality including hemorrhage, mass effect, hydrocephalus, or acute territorial edematous infarction. ) Interpretation: CT/CT abdomen pelvis wo IV con IMPRESSION: 1. A cause for the patient's abdominal pain has not been found. 2. Incidental note made of mild cardiomegaly, mild hepatomegaly and colonic diverticulosis without diverticulitis. Fleischner guidelines were followed. Radiology Impression Discussion of test interpretation with radiology: I have reviewed the radiologist's reading. External Record Review External record reviewed: Inpatient record, Office record, Outpatient record, Prior outpatient labs, Prior outpatient radiology, Primary care record and Outside ED record Tests considered The following testing was considered but not selected: On my exam there is no abdominal tenderness to palpation. Normal laboratory studies. Normal urine. No indication for imaging. Prescription Management I considered prescription management with: Other (Stool softeners) Chronic Conditions Patient?s care impacted by: Hypertension and Other (Disorder, MARK, fibromyalgia, polyarthralgia) Critical Care Time Critical Care Time Critical Care Time: No Discharge Plan Discharge Clinical Impression: Abdominal pain, Headache, Elevated blood pressure reading, Anxiety, Constipation Patient Disposition: Home, Self-Care Instructions: Constipation (DC), High Fiber Diet (ED), Acute Headache (DC), Abdominal Pain (ED) Additional Instructions: Take your medications as prescribed. If you were prescribed antibiotics today, it is important that you take your medication to their entirety, do not skip any doses, do not finish them early. Follow-up with your primary care provider this week. Return to the emergency department with new or worsening symptoms. Such as fevers, chills, chest pain, shortness of breath, nausea, vomiting, dizziness, headache, vision changes, lethargy In case of emergency call 911 If you feel like you are coonstipated take meds as prescribed Ensure you are taking your blood pressure medication as prescribed CT/CT head/brain wo IV con IMPRESSION: No acute intracranial abnormality including hemorrhage, mass effect, hydrocephalus, or acute territorial edematous infarction. CT/CT abdomen pelvis wo IV con IMPRESSION: 1. A cause for the patient's abdominal pain has not been found. 2. Incidental note made of mild cardiomegaly, mild hepatomegaly and colonic diverticulosis without diverticulitis. Fleischner guidelines were followed. Prescriptions: New acetaminophen [Tylenol] 325 mg capsule 325 mg PO Q4H PRN (Reason: pain) Qty: 30 0RF sennosides [senna] 8.6 mg tablet 8.6 mg PO BEDTIME Qty: 14 0RF docusate sodium [Colace] 100 mg capsule 100 mg PO BID Qty: 20 0RF No Action ibuprofen 600 mg tablet 600 mg PO Q6H PRN (Reason: pain) Qty: 30 0RF acetaminophen [Tylenol] 325 mg tablet 650 mg PO Q4H PRN (Reason: fever or pain) Qty: 30 0RF hydrochlorothiazide 25 mg tablet 25 mg PO Q OTHER DAY Qty: 40 0RF Rx Instructions: Take daily for 1 week, then every other day cephalexin 750 mg capsule 750 mg PO TID Qty: 30 0RF diphenhydramine HCl [Benadryl] 25 mg capsule 25 mg PO TID PRN (Reason: allergic reaction) Qty: 20 0RF metoclopramide HCl [Reglan] 10 mg tablet 10 mg PO Q6H PRN (Reason: headache) Qty: 20 0RF acetaminophen [Tylenol] 325 mg tablet 650 mg PO Q6H PRN (Reason: pain) Qty: 20 0RF finasteride 5 mg tablet 5 mg PO DAILY lisinopril 10 mg tablet 10 mg PO DAILY naproxen 500 mg tablet 500 mg PO BID aripiprazole [Abilify] 5 mg tablet 5 mg PO BEDTIME furosemide 20 mg tablet 20 mg PO DAILY Referrals: Amanda Olivas MD [Primary Care Provider] - 2 days ED Physician,Generic [Physician] - 2 days Stand Alone Forms: Work/School Release
[2023-05-27 19:29] LABS: MANUAL DIFF FLAG NO
[2023-05-27 19:31] LABS: Basophils Percent Auto 0.3 % (0-2); Eosinophils Absolute Auto 0.2 X10*3/uL (0.0-0.4); Eosinophils Percent Auto 3.2 % (0-4); Hematocrit 36.2 % (37.0-47.0); Hemoglobin 11.9 g/dl (12.0-16.0); Imm Gran Abs Auto 0.02 X10*3/uL (0.00-0.03); Imm Gran Pct Auto 0.3 % (0.0-0.4); Lymphocytes Absolute Auto 1.4 X10*3/uL (1.2-4.9); Lymphocytes Percent Auto 23.1 % (20-40); Mean Corpuscular HGB Conc 32.9 g/dl (31.0-35.0); Mean Corpuscular Hemoglobin 27.8 pg (27.0-33.0); Mean Corpuscular Volume 84.6 fL (80.0-98.0); Mean Platelet Volume 11.3 fL (9.4-12.3); Monocytes Absolute Auto 0.4 X10*3/uL (0.1-1.2); Monocytes Percent Auto 7.5 % (2-11); Neutrophils Absolute Auto 3.8 x10*3/uL (2.0-8.3); Neutrophils Percent Auto 65.6 % (45-73); Platelet Count 216 X10*3/uL (160-400); Red Blood Count 4.28 X10*6/uL (4.20-5.50); Red Cell Distribution Width 14.2 % (11.0-16.0); White Blood Count 5.9 X10*3/uL (4.8-10.8)
[2023-05-27 19:33] LABS: Appearance Urine Clear; Color Urine Yellow; Glucose Urine UA Negative (Negative); Leukocyte Esterase Urine Negative (Negative); Nitrite Urine Negative (Negative); UMIC TRIGGER UACC YES; Urine Blood Large (3+) (Negative); Urine Ketones Negative (Negative); Urine Protein 300 (3+) mg/dL (Neg-Trace)
[2023-05-27 19:38] LABS: Bacteria Urine None Seen (None Seen); Hyaline Casts Urine 0-2 /LPF (0-2); RBC Urine >20 /HPF (0-2); Squamous Epithelial Cell Urine 0-2 /HPF (0-2); UACC Culture Trigger YES
[2023-05-27 19:51] LABS: Alanine Aminotransferase 20 U/L (0-31); Albumin Level 3.9 g/dL (3.5-5.0); Alkaline Phosphatase 66 U/L (39-117); Anion Gap 9 (12-20); Aspartate Amino Transferase 24 U/L (5-31); Bilirubin Direct < 0.2 mg/dL (0.0-0.5); Bilirubin Total 0.1 mg/dL (0.0-1.0); Blood Urea Nitrogen 15 mg/dL (9-16); Calcium 9.4 mg/dL (8.4-10.2); Carbon Dioxide 26 mmol/L (22-29); Chloride 107 mmol/L (96-108); Creatinine Clr Calc Pharmacy 107.2; Estimated Glomerular Filt Rate > 60; Glucose Random 98 mg/dL (60-115); Lipase 27 U/L (8-78); Sodium 138 mmol/L (135-145); Total Protein 7.3 g/dL (6.5-8.0)
[2023-05-27 19:53] LABS: HCG Quantitative < 2 mIU/mL; Troponin-I High Sensitivity < 2.7 ng/L (<3.5-17.0)
[2023-05-27 20:06] LABS: Influenza A PCR NEGATIVE (Negative); Influenza B PCR NEGATIVE (Negative); Resp Syncy Virus RNA Qual PCR NEGATIVE (Negative); SARS COV2 PCR INHOUSE NEGATIVE (Negative)
[2023-05-27 20:55] VITALS: BP 165/88; PULSE 80; RESP 20; TEMP 37.1; O2SAT 98
[2023-05-28] MEDS: Sennosides 8.6 MG TABLET PO (00:35)
[2023-05-28] MEDS: Docusate Sodium 100 MG CAPSULE PO (00:35)
--- NOTE | 2023-05-28 00:41 | PC.NURSE ---
pt medicated per may. no sign of sob or chest pain, pt able to speak in full sentences.
--- NOTE | 2023-05-28 01:10 | PC.NURSE ---
pt requested Tylenol, upon discharge pt left with medication and paperwork
--- NOTE | 2023-05-28 01:11 | PC.NURSE ---
unable to do discharge vitals.
== END 2023-05-28 01:11 | disposition home or self-care (01) ==
PROVIDERS: Physician Assistant Medical; Emergency Provider Student in an Organized Health Care Education/Training Program; PCP Internal Medicine
DX: R51.9 Headache, unspecified (principal); R10.9 Unspecified abdominal pain; I10 Essential (primary) hypertension; F41.9 Anxiety disorder, unspecified; K59.00 Constipation, unspecified; Z91.148 Patient's other noncompliance with medication regimen for other reason; Z11.52 Encounter for screening for COVID-19; Z20.828 Contact with and (suspected) exposure to other viral communicable diseases
CPT/HCPCS: 0241U; 36415; 70450; 74176; 80048; 80076; 81001; 83690; 84484; 84702; 85025; 87086; 87147; 99284

== ENCOUNTER 2023-07-23 09:33 | Outpatient (REF) | payer MEDICAID, SELFPAY ==
[2023-07-23 11:55] LABS: Estimated Average Glucose 111 mg/dL; Hemoglobin A1c % 5.5 % (<6.0)
[2023-07-23 12:13] LABS: TSH reflex Free T4 1.14 uIU/mL (0.32-4.0)
== END 2023-07-23 09:34 | disposition home or self-care (01) ==
LOC: HO.HHCL 09:33
PROVIDERS: Visit Provider Internal Medicine
DX: I10 Essential (primary) hypertension (principal); N92.1 Excessive and frequent menstruation with irregular cycle
CPT/HCPCS: 36415; 83036; 84443